=== PATIENT | male | born 1970 | race Caucasian/White ===

== ENCOUNTER → 2021-01-30 13:56 | Outpatient (BNVA) | payer MEDICAID, SELFPAY | PROVIDERS: Family Provider Nurse Practitioner; PCP Nurse Practitioner; Visit Provider Nurse Practitioner Family | DX: J06.9 Acute upper respiratory infection, unspecified (principal); Z20.822 Contact with and (suspected) exposure to COVID-19 | CPT/HCPCS: 87426 ==

== ENCOUNTER 2021-02-13 04:36 | Emergency (ER) | payer MEDICAID, SELFPAY ==
[2021-02-13 04:37] VITALS: BP 145/84; PULSE 98; RESP 20; TEMP 36.8; O2SAT 100; BMI 31.1
--- NOTE | 2021-02-13 04:37 | ECG_ITS ---
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
--- NOTE | 2021-02-13 04:37 | XRR_ITS ---
PROCEDURE INFORMATION: Exam: XR Chest Exam date and time: 02/13/2021 4:37 AM Age: 50 years old Clinical indication: Chest pressure; Patient HX: Chest pain with radiation into back. Dyspnea. History of mi TECHNIQUE: Imaging protocol: XR of the chest. Views: 1 view. COMPARISON: CR Chest 1 [place] [id number] 06/22/2018 2:44 PM FINDINGS: Lungs: Mild airspace consolidation in the right infrahilar region, consistent with pneumonia, new. Follow-up imaging until clear is suggested. The left lung is clear. Pulmonary vasculature within normal limits. Pleural spaces: No visible pneumothorax or pleural effusion. Heart/Mediastinum: Heart size within normal limits. Bones/joints: No emergent findings identified. XR/XR chest 1V portable [id number] IMPRESSION: 1. Mild airspace consolidation in the right infrahilar region, consistent with pneumonia, new. Follow-up imaging until clear is suggested.
--- NOTE | 2021-02-13 04:38 | ED_ITS ---
Documented by User: Vanessa Sanchez MD 02/14/21 08:16 HPI - General Adult General: Chief complaint: ER Hold Stated complaint: CHEST PAIN Time Seen by Provider: 02/13/21 04:37 History of Present Illness: HPI narrative: CC: Chest Pain HPI: This is a [50] yo patient hx of HTN, CAD w/ prior MN, recent covid x 3 weeks ago presenting to the ED w/ acute onset intermittent sharp and pressure- like chest pain radiatnig to between the scapula back pain x 2 hours while sleeping. Patient started suddenly and is worse with inspiration. Denies nausa. No associated with vomiting or decreased PO intake. Denies any recent sympathomimetic drug use. Patient denies any cough. Denies palpitations, syncope symptoms. Pain not positional. No recent immobility, surgery, unilateral leg swelling, or prior PE. Patient denies any orthopnea, paroxysmal nocturnal dyspnea, weight gain, or increased leg swellings. Patient took 1 tab of SL nitro with improvement of pain. He was given 3 SL nitro by rescue with complete resolution of chest pain. ASA given en route. Onset: 2 hrs ago Duration: ongoing for the last 2 hrs Location: home Severity: moderate Review of Systems Narrative: Constitutional: No fever, no chills. HEENT: No vision changes, no sore throat. CV: +chest pain, no palpitations. PULM: No cough, +dyspnea. GI: No abdominal pain, no N/V/D. : No dysuria, no frequency, no hematuria. MSKEL: No arthralgias, no edema. SKIN: No new rashes, no lesions. NEURO: No headache, no focal weakness. HEME: No easy bleeding or bruising. PSYCH: No change in mood or affect. PFS ED PFSH: Medical History (Updated 02/13/21 @ 10:20 by Mau Jay MD) Cardiomyopathy Nonischemic with last EF around 40% Hypertensive left ventricular hypertrophy with heart failure Family History (Updated 02/13/21 @ 10:20 by Mau Jay MD) Other CAD (coronary artery disease) Social History (Updated 02/13/21 @ 10:21 by Mau Jay MD) Smoking and tobacco status: current every day smoker Alcohol intake: never Physical Exam Narrative: EXAM NARRATIVE: Head: Atraumatic, normocephalic Eyes: PERRL, EOMI, conjunctiva without injection ENT: Throat without erythema, lesions or exudate, MMM NECK: Supple, trachea midline, no JVD LUNGS: LCTA CV: RRR, S1,S2, no murmurs, rubs, gallops. 2+ peripheral pulses in UEs ABDOMEN: Soft, nontender, nondistended, BS x4, no rigidity, no guarding, no rebound EXTREMITY: Normal ROM, no pitting edema, no calf tenderness to palpation SKIN: No rash or erythema NEURO: Awake and alert. No focal motor deficits. PSYCH: Normal mood and affect. Course Vital Signs: Vital signs: Vital Signs Temperature 98.1 F 02/13/21 10:44 Pulse Rate 80 02/13/21 10:44 Respiratory Rate 18 02/13/21 10:44 Blood Pressure 138/78 02/13/21 10:44 Pulse Oximetry 98 02/13/21 10:44 MDM - General Adult MDM Narrative: Medical decision making narrative: [50]yo patient w/ CAD w/ prior MN, HTN resenting to the ED With acute substernal chest pain sometimes sharp pressure-like X 2 hrs. Currently chest pain free after 4 dose of SL nitro/ Given History And Exam today I have moderate to high suspicion for ACS/UA/NSTEMI. Given suddden onset of pleuritic and back-radiating pain, will evaluate for PE and dissection. Today, I have no suspicion for pneumothorax, pneumonia or other emergent problem as a cause for this presentation. ECG did not show any signs of acute STEMI. Workup: ECG, CXR, CBC, BMP, Troponin, CTA chest Findings: ECG: No overt evidence of STEMI, appropriate reciprocal ST depression from tall T waves, LVH criteira. No evidence of Brugada?s sign, delta wave, epsilon wave, significantly prolonged QTc, or malignant arrhythmia. No Q waves. [6:00am] On reassessment, the patient is currently chest pain free. S/p aspirin 325mg by rescue. Will defer antiplatelet and anticoagulation to the inpatient team. Pending repeat troponin. HDS, AAOx3, no signs of respiratory distress, without refractory chest pain, no signs of malignant dysrhythmia on neon sign servicer (VT/VF). CTA negative for dissection and PE. There apperas to consolidation noted on the CT study. Patient is currently febrile, no signs of leukocytosis, no complaints of respiratory symptoms --double PNA, but will defer treatment to the inpatient team. Disposition: Inpatient admission. Lab Data: Labs: Lab Results 02/13/21 02/13/21 02/13/21 Range/Units 04:50 04:50 04:50 WBC 7.8 (4.0-10.0) 10^3/ uL RBC 4.55 (4.1-5.3) 10^6/u L Hgb 13.5 (11.7-16.6) g/dL Hct 41.5 L (42.0-52.0) % MCV 91.2 (80-94) fL MCH 29.7 (28.0-34.0) pg MCHC 32.5 (30.0-36.0) g/dL RDW 11.8 L (12.1-15.1) % Plt Count 339 (130-400) 10^3/c mm MPV 10.6 H (7.4-10.4) fL Neut % (Auto) 62.6 % Lymph % (Auto) 24.5 % Lawrence % (Auto) 10.8 % Eos % (Auto) 1.5 % Baso % (Auto) 0.5 % Neut # (Auto) 4.89 (1.8-7.7) 10^3/u L Lymph # (Auto) 1.9 (0.8-4.8) 10^3/u L Lawrence # (Auto) 0.8 (0.2-0.9) 10^3/u L Eos # (Auto) 0.1 (0.0-0.8) 10^3/u L Baso # (Auto) 0.0 (0.0-0.1) 10^3/u L Nucleated RBC % (a uto) 0 % Nucleated RBCs # 0.0 /100WBC Sodium 141 (136-145) mmol/L Potassium 4.3 (3.5-5.1) mmol/L Chloride 105 (98-107) mmol/L Carbon Dioxide 27 (22-29) mmol/L Anion Gap 13.3 (5-19) BUN 14 (6-20) mg/dL Creatinine 0.8 (0.7-1.2) mg/dL GFR Calculation 101.9 (90-130) mL/min Glucose 102 (65-115) mg/dL Calculated Osmolal ity 293 (285-295) mOsm/k g Calcium 9.0 (8.5-10.5) mg/dL Troponin T Baselin e 8 (0-15) ng/L Troponin T 120 Min nikolai (0-15) ng/L Delta Troponin T (0-10) ABS# TSH (0.27-4.20) uIU/ mL SARS-CoV-2 Ag (Rap id) (Negative) 02/13/21 02/13/21 02/13/21 Range/Units 04:50 04:55 07:24 WBC (4.0-10.0) 10^3/ uL RBC (4.1-5.3) 10^6/u L Hgb (11.7-16.6) g/dL Hct (42.0-52.0) % MCV (80-94) fL MCH (28.0-34.0) pg MCHC (30.0-36.0) g/dL RDW (12.1-15.1) % Plt Count (130-400) 10^3/c mm MPV (7.4-10.4) fL Neut % (Auto) % Lymph % (Auto) % Lawrence % (Auto) % Eos % (Auto) % Baso % (Auto) % Neut # (Auto) (1.8-7.7) 10^3/u L Lymph # (Auto) (0.8-4.8) 10^3/u L Lawrence # (Auto) (0.2-0.9) 10^3/u L Eos # (Auto) (0.0-0.8) 10^3/u L Baso # (Auto) (0.0-0.1) 10^3/u L Nucleated RBC % (a uto) % Nucleated RBCs # /100WBC Sodium (136-145) mmol/L Potassium (3.5-5.1) mmol/L Chloride (98-107) mmol/L Carbon Dioxide (22-29) mmol/L Anion Gap (5-19) BUN (6-20) mg/dL Creatinine (0.7-1.2) mg/dL GFR Calculation (90-130) mL/min Glucose (65-115) mg/dL Calculated Osmolal ity (285-295) mOsm/k g Calcium (8.5-10.5) mg/dL Troponin T Baselin e (0-15) ng/L Troponin T 120 Min nikolai 9.05 (0-15) ng/L Delta Troponin T 1.05 (0-10) ABS# TSH 0.83 (0.27-4.20) uIU/ mL SARS-CoV-2 Ag (Rap id) Negative (Negative) Discharge Plan Discharge Patient Disposition: Home Clinical Impression: Chest pain, COVID-19, Pneumonia Condition: Stable Prescriptions: New doxycycline hyclate 100 mg capsule 100 mg PO BID 10 Days Qty: 20 RF: 0 aspirin 81 mg tablet,delayed release (DR/EC) 81 mg PO DAILY Qty: 30 RF: 0 Continued nitroglycerin [Nitrostat] 0.4 mg tablet, sublingual 0.4 mg sublingual Q5M PRN (Reason: Chest Pain) RF: 0 Discharge Orders: Discharge ED (Routine); Ordered 02/13/21 Ordered By: Renan Jones Referrals: Mely Dawson FNP-C [Primary Care Provider] - Patient Instructions: Opioid Safety Coding Level of Care Code ED Political Advisor for Chg Fwd Documented by User: Renan Jones DO 02/13/21 09:11 HPI - General Adult General: Chief complaint: ER Hold Stated complaint: CHEST PAIN Time Seen by Provider: 02/13/21 04:37 PFS ED PFSH: Medical History (Updated 02/13/21 @ 10:20 by Mau Jay MD) Cardiomyopathy Nonischemic with last EF around 40% Hypertensive left ventricular hypertrophy with heart failure Family History (Updated 02/13/21 @ 10:20 by Mau Jay MD) Other CAD (coronary artery disease) Social History (Updated 02/13/21 @ 10:21 by Mau Jay MD) Smoking and tobacco status: current every day smoker Alcohol intake: never Course Vital Signs: Vital signs: Vital Signs Temperature 98.1 F 02/13/21 10:44 Pulse Rate 80 02/13/21 10:44 Respiratory Rate 18 02/13/21 10:44 Blood Pressure 138/78 02/13/21 10:44 Pulse Oximetry 98 02/13/21 10:44 MDM - General Adult MDM Narrative: Medical decision making narrative: Discussed patient with Dr. Sanchez at change of shift. Also discussed Dr. Rocha. Dr. Rocha is currently seeing the patient anticipating adjustment of medications and discharge directly from the ER. See his consultation notes. Lab Data: Labs: Lab Results 02/13/21 02/13/21 02/13/21 Range/Units 04:50 04:50 04:50 WBC 7.8 (4.0-10.0) 10^3/ uL RBC 4.55 (4.1-5.3) 10^6/u L Hgb 13.5 (11.7-16.6) g/dL Hct 41.5 L (42.0-52.0) % MCV 91.2 (80-94) fL MCH 29.7 (28.0-34.0) pg MCHC 32.5 (30.0-36.0) g/dL RDW 11.8 L (12.1-15.1) % Plt Count 339 (130-400) 10^3/c mm MPV 10.6 H (7.4-10.4) fL Neut % (Auto) 62.6 % Lymph % (Auto) 24.5 % Lawrence % (Auto) 10.8 % Eos % (Auto) 1.5 % Baso % (Auto) 0.5 % Neut # (Auto) 4.89 (1.8-7.7) 10^3/u L Lymph # (Auto) 1.9 (0.8-4.8) 10^3/u L Lawrence # (Auto) 0.8 (0.2-0.9) 10^3/u L Eos # (Auto) 0.1 (0.0-0.8) 10^3/u L Baso # (Auto) 0.0 (0.0-0.1) 10^3/u L Nucleated RBC % (a uto) 0 % Nucleated RBCs # 0.0 /100WBC Sodium 141 (136-145) mmol/L Potassium 4.3 (3.5-5.1) mmol/L Chloride 105 (98-107) mmol/L Carbon Dioxide 27 (22-29) mmol/L Anion Gap 13.3 (5-19) BUN 14 (6-20) mg/dL Creatinine 0.8 (0.7-1.2) mg/dL GFR Calculation 101.9 (90-130) mL/min Glucose 102 (65-115) mg/dL Calculated Osmolal ity 293 (285-295) mOsm/k g Calcium 9.0 (8.5-10.5) mg/dL Troponin T Baselin e 8 (0-15) ng/L Troponin T 120 Min nikolai (0-15) ng/L Delta Troponin T (0-10) ABS# TSH (0.27-4.20) uIU/ mL SARS-CoV-2 Ag (Rap id) (Negative) 02/13/21 02/13/21 02/13/21 Range/Units 04:50 04:55 07:24 WBC (4.0-10.0) 10^3/ uL RBC (4.1-5.3) 10^6/u L Hgb (11.7-16.6) g/dL Hct (42.0-52.0) % MCV (80-94) fL MCH (28.0-34.0) pg MCHC (30.0-36.0) g/dL RDW (12.1-15.1) % Plt Count (130-400) 10^3/c mm MPV (7.4-10.4) fL Neut % (Auto) % Lymph % (Auto) % Lawrence % (Auto) % Eos % (Auto) % Baso % (Auto) % Neut # (Auto) (1.8-7.7) 10^3/u L Lymph # (Auto) (0.8-4.8) 10^3/u L Lawrence # (Auto) (0.2-0.9) 10^3/u L Eos # (Auto) (0.0-0.8) 10^3/u L Baso # (Auto) (0.0-0.1) 10^3/u L Nucleated RBC % (a uto) % Nucleated RBCs # /100WBC Sodium (136-145) mmol/L Potassium (3.5-5.1) mmol/L Chloride (98-107) mmol/L Carbon Dioxide (22-29) mmol/L Anion Gap (5-19) BUN (6-20) mg/dL Creatinine (0.7-1.2) mg/dL GFR Calculation (90-130) mL/min Glucose (65-115) mg/dL Calculated Osmolal ity (285-295) mOsm/k g Calcium (8.5-10.5) mg/dL Troponin T Baselin e (0-15) ng/L Troponin T 120 Min nikolai 9.05 (0-15) ng/L Delta Troponin T 1.05 (0-10) ABS# TSH 0.83 (0.27-4.20) uIU/ mL SARS-CoV-2 Ag (Rap id) Negative (Negative) Discharge Plan Discharge Patient Disposition: Home Clinical Impression: Chest pain, COVID-19, Pneumonia Condition: Stable Prescriptions: New doxycycline hyclate 100 mg capsule 100 mg PO BID 10 Days Qty: 20 RF: 0 aspirin 81 mg tablet,delayed release (DR/EC) 81 mg PO DAILY Qty: 30 RF: 0 Continued nitroglycerin [Nitrostat] 0.4 mg tablet, sublingual 0.4 mg sublingual Q5M PRN (Reason: Chest Pain) RF: 0 Discharge Orders: Discharge ED (Routine); Ordered 02/13/21 Ordered By: Renan Jones Referrals: Mely Dawson, SWITCHGEAR REPAIRER-C [Primary Care Provider] - Patient Instructions: Opioid Safety Coding Level of Care Code ED Political Advisor for Carlos Longo
--- NOTE | 2021-02-13 04:46 | CTR_ITS ---
PROCEDURE INFORMATION: Exam: CTA Chest With Contrast Exam date and time: 02/13/2021 4:46 AM Age: 50 years old Clinical indication: Chest pressure; Patient HX: Chest pain with radiation into back. Dyspnea. History of mi; Additional info: Rule out pe TECHNIQUE: Imaging protocol: Computed tomographic angiography of the chest with contrast. 3D rendering (Not supervised by radiologist): MIP and/or 3D reconstructed images were created by the technologist. Radiation optimization: All CT scans at this facility use at least one of these dose optimization techniques: automated exposure control; mA and/or kV adjustment per patient size (includes targeted exams where dose is matched to clinical indication); or iterative reconstruction. Contrast material: OMNI 350; Contrast volume: 77 ml; Contrast route: INTRAVENOUS (IV); COMPARISON: CTA Thoracic/Abd/Pelvis Aorta 03/24/2018 11:23 PM RADIATION DOSE METRICS: Total DLP (mGy-cm): 578.86 FINDINGS: Pulmonary arteries: No pulmonary emboli identified. Aorta: No thoracic aortic aneurysm identified. Lungs: Mild atelectasis at the periphery of both lungs. Moderate airspace consolidation in the right lower lobe superior segment, new. Appearance is consistent with pneumonia. Follow-up imaging until clear is suggested. Pleural spaces: No pneumothorax or pleural effusion. Heart: Heart size within normal limits. Lymph nodes: Enlarged right hilar lymph node measuring 1.4 cm short axis on series 2, image 214. Bones/joints: Mild degenerative changes of the thoracic spine. Soft tissues: Unremarkable. CT/CT angio chest PE protcl [id number] IMPRESSION: 1. No pulmonary emboli identified. 2. Moderate airspace consolidation in the right lower lobe superior segment, new. Appearance is consistent with pneumonia. Follow-up imaging until clear is suggested. Radiation Dose CTDIVOL = (mGy): DLP = 578.86 (mGy-cm)
[2021-02-13] MEDS: iohexol 350 mg/mL 100 mL Btl IV (05:02)
[2021-02-13 05:27] LABS: Troponin(5th) Baseline 8 ng/L (0-15)
[2021-02-13 05:28] LABS: Basophils % 0.5 %; Eosinophils # 0.1 10^3/uL (0.0-0.8); Eosinophils % 1.5 %; Hematocrit 41.5 % (42.0-52.0); Hemoglobin 13.5 g/dL (11.7-16.6); Lymphocytes # 1.9 10^3/uL (0.8-4.8); Lymphocytes % 24.5 %; Mean Corpuscular HGB Conc 32.5 g/dL (30.0-36.0); Mean Corpuscular Hemoglobin 29.7 pg (28.0-34.0); Mean Corpuscular Volume 91.2 fL (80-94); Mean Platelet Volume 10.6 fL (7.4-10.4); Monocytes # 0.8 10^3/uL (0.2-0.9); Monocytes % 10.8 %; Neutrophils # 4.89 10^3/uL (1.8-7.7); Neutrophils % 62.6 %; Nucleated Red Blood Cells % 0 %; Platelet Count 339 10^3/cmm (130-400); Red Blood Count 4.55 10^6/uL (4.1-5.3); Red Cell Distribution Width 11.8 % (12.1-15.1); White Blood Count 7.8 10^3/uL (4.0-10.0)
[2021-02-13 05:29] LABS: Anion Gap 13.3 (5-19); Blood Urea Nitrogen 14 mg/dL (6-20); Carbon Dioxide 27 mmol/L (22-29); Chloride 105 mmol/L (98-107); Creatinine Clr Calc Pharmacy 136.4209; Glomerular Filtration Rate 101.9 mL/min (90-130); Glucose 102 mg/dL (65-115); Osmolality Calculated 293 mOsm/kg (285-295); Potassium 4.3 mmol/L (3.5-5.1); Sodium 141 mmol/L (136-145)
[2021-02-13 05:56] VITALS: BP 117/71; PULSE 89; RESP 16; O2SAT 96
[2021-02-13 06:07] LABS: SARS Covid-2 Antigen Negative (Negative)
--- NOTE | 2021-02-13 06:37 | ECG_ITS ---
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
[2021-02-13 07:55] LABS: Troponin 5 2HR 9.05 ng/L (0-15); Troponin 5 2HR Delta 1.05 ABS# (0-10)
--- NOTE | 2021-02-13 08:33 | USCV_ITS ---
Orlin De Age: 50 Gender: M : 1970 Exam Date: 02/13/2021 08:49 Ordering Phys: Mau Jay MD Technologist: Delia Boyce Exam Location: [facility] Indication: CHEST PAIN BP: 118 / 76 HR: 75 Rhythm: Sinus Technical Quality: Adequate MEASUREMENTS (Male / Female) Normal Values 2D ECHO LV Diastolic Diameter PLAX 5.7 cm 4.2 - 5.9 / 3.9 - 5.3 cm LV Systolic Diameter PLAX 4.8 cm IVS Diastolic Thickness 1.4 cm 0.6 - 1.0 / 0.6 - 0.9 cm IVS Systolic Thickness 1.4 cm LVPW Diastolic Thickness 1.4 cm 0.6 - 1.0 / 0.6 - 0.9 cm LVPW Systolic Thickness 1.8 cm RV Chamber Size 2.3 cm LVOT Diameter 2.3 cm LV Ejection Fraction 2D Teich 34.2 % LV Ejection Fraction MOD 2C 36.0 % LV Ejection Fraction 2C AL 37.2 % LA Diameter 3.5 cm LA Width 3.1 cm LA Height 4.2 cm RA Width 3.6 cm RA Height 3.7 cm Aorta at Sinotubular Diameter 2.8 cm M-MODE Aortic Annulus Diameter 3.2 cm LA Ao Ratio MM 1.2 MV E Point Septal Separation 1.3 cm DOPPLER AV Peak Velocity 115.0 cm/s LVOT Peak Velocity 82.0 cm/s AV Area Cont Eq vti 2.8 cm squared AV Area Cont Eq pk 3.1 cm squared MV Area PHT 5.0 cm squared Mitral E to A Ratio 0.7 MV E' Velocity 32.5 cm/s Mitral E to MV E' Ratio 8.0 Mitral E to LV E' Lateral Ratio 6.4 Mitral E to LV E' Septal Ratio 10.5 TR Peak Velocity 194.7 cm/s TR Peak Gradient 15.2 mmHg TV Peak E Velocity 61.0 cm/s Right Atrial Pressure 3.0 mmHg Pulmonary Artery Systolic Pressu 18.2 mmHg PV Peak Velocity 83.0 cm/s RV Acceleration Time 0.1 s RV Ejection Time 0.3 s RV AcT/ET 0.4 FINDINGS Left Ventricle Moderately increased left ventricular cavity size. Moderately decreased left ventricular systolic function. Left ventricular ejection fraction is estimated at 40 %. Global left ventricular hypokinesis.Grade I/IV diastolic dysfunction (abnormal relaxation filling pattern), normal to mildly elevated filling pressures. Right Ventricle The right ventricle is normal in size and function. Right Atrium The right atrium is normal in size. Left Atrium The left atrium is normal in size. Mitral Valve Moderately thickened mitral valve. No mitral valve stenosis. Trace mitral valve regurgitation. Aortic Valve Mild aortic valve calcification. No aortic valve stenosis. Trace aortic valve regurgitation. Tricuspid Valve Structurally normal tricuspid valve without significant stenosis or regurgitation. Pulmonary artery systolic pressure is normal. Pulmonic Valve Structurally normal pulmonic valve without significant stenosis. There is no pulmonic regurgitation. Pericardium Normal pericardium without effusion. Aorta Normal ascending aorta dimension. CONCLUSIONS 1-Moderately increased left ventricular cavity size. Moderately decreased left ventricular systolic function. Left ventricular ejection fraction is estimated at 40 %. Global left ventricular hypokinesis.Grade I/IV diastolic dysfunction (abnormal relaxation filling pattern), normal to mildly elevated filling pressures. 2-Moderately thickened mitral valve. No mitral valve stenosis. Trace mitral valve regurgitation. 3-Mild aortic valve calcification. No aortic valve stenosis. Trace aortic valve regurgitation. 4-There is no pericardial effusion. 5-Pulmonary artery systolic pressure is within normal limits. 6-Right atrial pressure is around 5 mm of mercury. 7-No significant change since the prior echocardiogram study of 03/26/2018. Brianne Arias MD (Electronically Signed) Final Date: 13 February 2021 10:04 S
[2021-02-13 09:21] LABS: Thyroid Stimulating Hormone 0.83 uIU/mL (0.27-4.20)
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
[2021-02-13 10:44] VITALS: BP 138/78; PULSE 80; RESP 18; TEMP 36.7; O2SAT 98
--- NOTE | 2021-02-17 13:58 | DCPLANNER ---
Addendum entered by Concetta Larsen 02/18/21 09:49: manager research and development spoke with patients daughter, and gave her the appointment information for patient. She stated that she would give the information to patient. Original Note: manager research and development had message to schedule a follow up appointment for patient with heart care and an outpatient stress test. manager research and development called [facility], spoke with Pily, a follow up appointment is scheduled for Wednesday, March 03, 2021 at 10:30 with . manager research and development faxed signed order to centralized scheduling, who will call patient with appointment information. manager research and development called phone number [phone] - unable to speak with patient and unable to leave a voicemail due to no voicemail set up at this time. manager research and development called phone number [phone], patients daughter, left a voicemail to have patient return nurse case manager phone call.
--- NOTE | 2021-03-04 07:34 | DCPLANNER ---
Patient has a stress test scheduled for Wednesday, March 19, 2021 at 9:15. Patient had a follow up appointment scheduled for 03.03.21 with heart care - patient did not attend appointment.
--- NOTE | 2021-03-28 11:20 | DCPLANNER ---
Patient had an outpatient stress test scheduled for 03.19.21 - patient did not attend appointment.
== END 2021-02-13 10:45 | disposition home or self-care (01) ==
LOC: ER 04:40 → ER IP 10:18
PROVIDERS: Emergency Medicine; Internal Medicine; Emergency Provider Family Medicine; PCP Nurse Practitioner
DX: R07.9 Chest pain, unspecified (principal); U07.1 COVID-19; J12.82 Pneumonia due to coronavirus disease 2019; I25.10 Atherosclerotic heart disease of native coronary artery without angina pectoris; I25.2 Old myocardial infarction; I11.0 Hypertensive heart disease with heart failure; I43 Cardiomyopathy in diseases classified elsewhere; Z82.49 Family history of ischemic heart disease and other diseases of the circulatory system
CPT/HCPCS: 36415; 71045; 71275; 80048; 84443; 84484; 85025; 87426; 93005; 93306; 99283; Q9967

== ENCOUNTER → 2021-08-13 12:05 | Outpatient (BNVA) | payer MEDICAID, SELFPAY | PROVIDERS: PCP Nurse Practitioner; Visit Provider Nurse Practitioner | DX: I42.9 Cardiomyopathy, unspecified (principal); E74.39 Other disorders of intestinal carbohydrate absorption | CPT/HCPCS: 80053; 80061; 81000; 83036; 85025 ==

== ENCOUNTER 2022-03-04 12:45 | Emergency (ER) | payer MEDICAID, SELFPAY ==
[2022-03-04 12:48] VITALS: BP 140/87; PULSE 90; RESP 17; TEMP 36.7; O2SAT 98; BMI 28.5
[2022-03-04 12:56] VITALS: BP 140/87; PULSE 90; RESP 16; TEMP 36.7; O2SAT 98; BMI 28.5
[2022-03-04 13:08] LABS: Glucose Point of Care 105 mg/dL (70-110)
--- NOTE | 2022-03-04 13:18 | XR_ITS ---
WS: [id number] Exam: XR ankle RT min 3V* [id number] Date/Time of Exam: 03/04/2022 1:23 PM Reason For Exam: pain Findings: Multiple views of the ankle reveal no fracture or displacements of bone. No soft tissue swelling is present. There are no periosteal reactions noted. The talus and calcaneus are in adequate position. The joint space is smooth and equidistant. XR/XR ankle RT min 3V* [id number] IMPRESSION: Negative right ankle.
--- NOTE | 2022-03-04 13:18 | XR_ITS ---
WS: [id number] Exam: XR foot RT min 3V* [id number] Date/Time of Exam: 03/04/2022 1:23 PM Reason For Exam: pain No fracture or dislocation. No soft tissue foreign bodies are seen. Tiny heel spur. XR/XR foot RT min 3V* [id number] IMPRESSION: 1. No fracture or other significant finding.
--- NOTE | 2022-03-04 13:20 | ED_ITS ---
HPI - Extremity Problem General: Chief complaint: Extremity Problem,Nontraumatic Stated complaint: Pain all over Time Seen by Provider: 03/04/22 13:02 History of Present Illness: 51-year-old male presents emergency room with complaint of right ankle and foot pain. On arrival here is difficult to understand difficult to arouse at times even desaturated. He required supplemental oxygen for a time. His gave most of his history. When I asked her to allow him to answer he was unable to answer really any questions. She states he jumped off of a low-level roof and hurt his right foot yesterday she did not he did not strike his head or lose consciousness. He was at work. Today and said that his foot began to hurt and he laughed they eventually called the ambulance and he was brought in by family. He is complaining of pain generally all over but mostly focused on his foot. Patient level of consciousness progressively worsened and we gave him Narcan after which she was much more awake and alert and able to answer questions appropriately. He denies any narcotics use. MD Complaint: extremity pain Onset (ago): minute(s) Pain Consistency: constant Location: right (Foot) Quality: sharp Radiation: none Relieving factors: nothing Exacerbating factors: nothing Associated symptoms: Deny arthralgias, chest pain, fever(s), myalgias, rash or short of breath Review of Systems General: Reports: Other (Review of systems after Narcan given) Const: Denies: fever(s) ENMT: Denies: throat pain, ear or mastoid pain, nasal discharge or nasal congestion Card: Denies: chest pain Resp: Denies: dyspnea, productive cough or non-productive cough GI: Denies: abdominal pain, nausea, vomiting, hematemesis, coffee ground emesis, diarrhea, constipation, bloating, hematochezia or melena : Denies: flank pain, dysuria, urinary frequency or urinary urgency Musc: Reports: joint pain Skin/Breast: Denies: rash PFSH ED PFSH: Medical History Cardiomyopathy Nonischemic with last EF around 40% COVID-19 History of PR (myocardial infarction) Hyperlipidemia Hypertensive left ventricular hypertrophy with heart failure Migraines Osteoarthritis Pneumonia Tobacco use Surgical History No history of previous surgery Family History Mother CAD (coronary artery disease) Myocardial infarction Social History Smoking and tobacco status: current every day smoker Alcohol intake: never Caregiver/support person: Yes Lives independently: Yes Household members: significant other Current gender identity: Male Physical Exam Const: GENERAL APPEARANCE: disheveled and lethargic ORIENTATION/CONSCIOUSN ESS: Yes awake, Yes oriented to person, Yes oriented to place, Yes oriented to time and Yes lethargic HENMT: COMMON NORMALS: normocephalic, atraumatic and hearing grossly normal bilaterally HEAD & SCALP: normocephalic and atraumatic Eye: COMMON NORMALS: Equal, round and reactive pupils present, EOMs intact bilaterally, conjunctivae normal and no scleral icterus CONJUNCTIVA: Yes conjunctivae normal PUPIL: Yes Equal, round and reactive pupils present Neck/C-Spine: COMMON NORMALS: full ROM, no lymphadenopathy, supple and no JVD Lymph: LYMPHATIC: no lymphadenopathy noted and no lymphedema noted Resp: COMMON NORMALS: normal respiratory effort, No retractions, No use of accessory muscles and clear to auscultation bilaterally AUSCULTATION: clear to auscultation bilaterally Cardio: COMMON NORMALS: no JVD, regular rate, regular rhythm and No murmurs present (Cardio) RATE: regular rate RHYTHM: regular rhythm GI: COMMON NORMALS: Soft to palpation and No hepatosplenomegaly present AUSCULTATION: Yes normoactive bowel sounds PALPATION: Yes Soft to palpation, No Tenderness to palpation present (GI), No Guarding due to palpation present (GI) and Yes No hepatosplenomegaly present Extremity: COMMON NORMALS: normal to inspection, capillary refill normal, no clubbing, cyanosis or edema, no calf tenderness and no pedal edema OTHER: No deformity the right foot or ankle pulses palpable at dorsalis pedis posterior tibialis neurovascularly intact. Neuro: SENSORIUM/ORIENTATION: Yes oriented to person, Yes oriented to place, Yes oriented to time and Yes lethargic Skin: COMMON NORMALS: no rashes or lesions noted GENERAL SKIN EXAM: no rashes or lesions noted Course Vital Signs: Vital signs: Vital Signs Temperature 98.0 F 03/04/22 12:56 Pulse Rate 76 03/04/22 13:39 Respiratory Rate 31 H 03/04/22 13:39 Blood Pressure 129/63 03/04/22 13:39 Pulse Oximetry 98 03/04/22 13:39 Oxygen Delivery Me thod 03/04/22 13:39 MDM - Extremity (Nontraumatic) Medical Decision Making Patient responded to Narcan completely awake and did not have any recurrence of his symptoms. X-rays unremarkable CT negative. He is remained awake and alert. He probably did sprain his ankle for which we gave him diclofenac. Discussed with him that we gave him medication is very specific with reversal of opiates he maintains he does not take any opiates he states he has no idea how that might of gotten into his system. We will go at discharge him home use diclofenac. Follow-up with his primary care doctor if he does not improve. Medical Records I reviewed the patient's medical records. Lab Data I reviewed the patient's lab results. : 03/04/22 13:52 03/04/22 13:52 Radiology Impressions Ankle X-Ray 03/04/22 13:18 IMPRESSION: Negative right ankle. Foot X-Ray 03/04/22 13:18 IMPRESSION: 1. No fracture or other significant finding. Chest X-Ray 03/04/22 13:32 IMPRESSION: Unremarkable chest radiograph. Head CT 03/04/22 13:35 IMPRESSION: 1. No acute intracranial hemorrhage or edema. 2. Bilateral basal ganglia calcification and stable LEFT cerebellar calcification. Laboratory Results WBC 10.7 10^3/uL (4.0-10.0) H 03/04/22 13:52 RBC 4.00 10^6/uL (4.1-5.3) L 03/04/22 13:52 Hgb 12.0 g/dL (11.7-16.6) 03/04/22 13:52 Hct 36.8 % (42.0-52.0) L 03/04/22 13:52 MCV 92.0 fl (80-94) 03/04/22 13:52 MCH 30.0 pg (28.0-34.0) 03/04/22 13:52 MCHC 32.6 g/dL (30.0-36.0) 03/04/22 13:52 RDW 11.7 % (12.1-15.1) L 03/04/22 13:52 Plt Count 232 10^3/cmm (130-400) 03/04/22 13:52 MPV 10.5 fL (7.4-10.4) H 03/04/22 13:52 Neut % (Auto) 73.7 % 03/04/22 13:52 Lymph % (Auto) 15.7 % 03/04/22 13:52 [place] % (Auto) 6.8 % 03/04/22 13:52 Eos % (Auto) 2.6 % 03/04/22 13:52 Baso % (Auto) 0.6 % 03/04/22 13:52 Neut # (Auto) 7.87 10^3/uL (1.8-7.7) H 03/04/22 13:52 Lymph # (Auto) 1.7 10^3/uL (0.8-4.8) 03/04/22 13:52 [place] # (Auto) 0.7 10^3/uL (0.2-0.9) 03/04/22 13:52 Eos # (Auto) 0.3 10^3/uL (0.0-0.8) 03/04/22 13:52 Baso # (Auto) 0.1 10^3/uL (0.0-0.1) 03/04/22 13:52 Nucleated RBC % (auto) 0 % 03/04/22 13:52 Nucleated RBCs # 0.0 /100WBC 03/04/22 13:52 Sodium 140 mmol/L (136-145) 03/04/22 13:52 Potassium 3.5 mmol/L (3.5-5.1) 03/04/22 13:52 Chloride 107 mmol/L (98-107) 03/04/22 13:52 Carbon Dioxide 22 mmol/L (22-29) 03/04/22 13:52 Anion Gap 14.5 (5-19) 03/04/22 13:52 BUN 23 mg/dL (6-20) H 03/04/22 13:52 Creatinine 0.7 mg/dL (0.7-1.2) 03/04/22 13:52 GFR Calculation 118.4 mL/min (90-130) 03/04/22 13:52 Glucose 109 mg/dL (65-115) 03/04/22 13:52 POC Glucose 105 mg/dL (70-110) 03/04/22 13:01 Calculated Osmolality 294 mOsm/kg (285-295) 03/04/22 13:52 Calcium 8.9 mg/dL (8.5-10.5) 03/04/22 13:52 Total Bilirubin 0.4 mg/dL (0.15-1.2) 03/04/22 13:52 AST 18 U/L (0-40) 03/04/22 13:52 ALT 15 U/L (0-41) 03/04/22 13:52 Alkaline Phosphatase 66 U/L (40-130) 03/04/22 13:52 Total Protein 6.8 g/dL (6.6-8.7) 03/04/22 13:52 Albumin 4.4 g/dL (3.5-5.2) 03/04/22 13:52 Globulin 2.4 g/dL (1.3-4.6) 03/04/22 13:52 Salicylates 0.9 mg/dL (3-10) L 03/04/22 13:52 Acetaminophen < 5.0 ug/mL (10-30) L 03/04/22 13:52 Discharge Plan Discharge Patient Disposition: Home Clinical Impression: Opiate or related narcotic overdose, Ankle sprain Condition: Stable Prescriptions: New diclofenac sodium 75 mg tablet,delayed release (DR/EC) 75 mg PO Q12H PRN (Reason: pain) Qty: 20 0RF Held aspirin 325 mg Tablet 325 mg PO DAILY Hold Instructions: Resume on 03/13/22. No Action nitroglycerin [Nitrostat] 0.4 mg tablet, sublingual 0.4 mg sublingual Q5M PRN (Reason: Chest Pain) Rx Instructions: do not exceed 3 doses per episode glucose 4 gram Tablet,Chewable 4 g PO Q15M PRN (Reason: Hypocalcemia) Rx Instructions: until symptoms of low blood sugar are controlled Discharge Orders: Discharge ED (Routine); Ordered 03/04/22 Ordered By: Renan Jones Referrals: Mely Dawson, [facility]ER-C [Primary Care Provider] - Discharge Diet: Usual diet Discharge Activity: Resume usual activity Patient Instructions: Opioid Safety Activity Restrictions/Additional Instructions: If ankle pain persist follow-up with your primary care doctor. Coding Level of Care Code ED Correctional Officer Captain for Chg Fwd Exam Comprehensive
--- NOTE | 2022-03-04 13:32 | ECG_ITS ---
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 Measurements Intervals [place] Rate: 93 P: 70 GA: 136 QRS: 67 QRSD: 96 T: -48 QT: 363 QTc: 454 Interpretive Statements SINUS RHYTHM ST DEVIATION AND MODERATE T-WAVE ABNORMALITY, CONSIDER INFERIOR ISCHEMIA [-0.1+ mV T-WAVE IN II/aVF] Compared to ECG 02/13/2021 06:30:26 T-wave abnormality now present Possible ischemia now present Left ventricular hypertrophy no longer present ST (T wave) deviation no longer present Electronically Signed On 03-04-2022 16:19:43 CDT by Belén Altamirano M.D. [id number]
--- NOTE | 2022-03-04 13:32 | XR_ITS ---
WS: [id number] Exam: XR chest 1V portable [id number] Date/Time of Exam: 03/04/2022 1:41 PM Reason For Exam: dyspnea/cough Comparison 02/13/2021. Findings: The lungs are clear and fully expanded. Costophrenic angles are sharp. No infiltrates. Bronchovascula r relief appears normal. Cardiac silhouette is unremarkable. Bony elements are intact. XR/XR chest 1V portable [id number] IMPRESSION: Unremarkable chest radiograph.
[2022-03-04] MEDS: ketorolac 60 mg/2 mL INJ IM (13:33)
--- NOTE | 2022-03-04 13:35 | CT_ITS ---
WS: [id number] CT HEAD NONCONTRAST HISTORY: AMS TECHNIQUE: Contiguous axial imaging performed through the brain in 2.5 mm imaging. Bone and soft tiss ue windows. Sagittal and coronal reformats reviewed. All CT scans at [facility] use at least one of these dose optimization techniques: automated exposure control; mA and/or kV adjustment per pa tient size (includes targeted exams where dose is matched to clinical indication); or iterative recon struction. DLP: 1048.58 mGy.cm COMPARISON: 02/20/2010 No acute intracranial hemorrhage, midline shift or mass effect. Mild atrophy and mild small vessel ischemic disease. Bilateral basal ganglia calcifications. There is also a calcification in the LEFT cerebellum which is present on the prior study. Ventricles: Normal size with no hydrocephalus. No inferior displacement of the cerebellar tonsils. Paranasal sinuses: Mucoperiosteal thickening in the ethmoid air cells. Disease in the anterior and po sterior ethmoid air cells. No air-fluid levels. Mastoid air cells: Well pneumatized. Calvarium and scalp: Skull is intact with no soft tissue edema or swelling. CT/CT head wo con* [id number] IMPRESSION: 1. No acute intracranial hemorrhage or edema. 2. Bilateral basal ganglia calcification and stable LEFT cerebellar calcificat ion.
[2022-03-04 13:39] VITALS: BP 129/63; PULSE 76; RESP 31; O2SAT 98
[2022-03-04] MEDS: naloxone 0.4 mg/ml SDV IVP (14:03)
--- NOTE | 2022-03-04 14:10 | PC.PHAR ---
pts verified pts medications-states the pt was released from [facility] on 02/02/22 states the pt was on 13-14 medications but states he wasnt sent home with any and is unsure of the names of the medications he was taking while in there-states the pt has an appt with di anthony on 03/30/22-states she has only been giving the pt the medications that are entered
[2022-03-04 14:11] LABS: Basophils # 0.1 10^3/uL (0.0-0.1); Basophils % 0.6 %; Eosinophils # 0.3 10^3/uL (0.0-0.8); Eosinophils % 2.6 %; Hematocrit 36.8 % (42.0-52.0); Lymphocytes # 1.7 10^3/uL (0.8-4.8); Lymphocytes % 15.7 %; Mean Corpuscular HGB Conc 32.6 g/dL (30.0-36.0); Mean Platelet Volume 10.5 fL (7.4-10.4); Monocytes # 0.7 10^3/uL (0.2-0.9); Monocytes % 6.8 %; Neutrophils # 7.87 10^3/uL (1.8-7.7); Neutrophils % 73.7 %; Nucleated Red Blood Cells % 0 %; Platelet Count 232 10^3/cmm (130-400); Red Cell Distribution Width 11.7 % (12.1-15.1); White Blood Count 10.7 10^3/uL (4.0-10.0)
[2022-03-04 14:35] LABS: Alanine Aminotransferase 15 U/L (0-41); Albumin Level 4.4 g/dL (3.5-5.2); Alkaline Phosphatase 66 U/L (40-130); Anion Gap 14.5 (5-19); Aspartate Amino Transferase 18 U/L (0-40); Blood Urea Nitrogen 23 mg/dL (6-20); Calcium 8.9 mg/dL (8.5-10.5); Carbon Dioxide 22 mmol/L (22-29); Chloride 107 mmol/L (98-107); Globulin 2.4 g/dL (1.3-4.6); Glomerular Filtration Rate 118.4 mL/min (90-130); Glucose 109 mg/dL (65-115); Osmolality Calculated 294 mOsm/kg (285-295); Potassium 3.5 mmol/L (3.5-5.1); Salicylate 0.9 mg/dL (3-10); Sodium 140 mmol/L (136-145); Total Bilirubin 0.4 mg/dL (0.15-1.2); Total Protein 6.8 g/dL (6.6-8.7)
[2022-03-04 14:36] LABS: Acetaminophen < 5.0 ug/mL (10-30)
--- NOTE | 2022-03-04 14:52 | PC.NURSE ---
DR. LAYNE GAVE VERBAL ORDER TO STRAIT CATH PT. PT REFUSED
[2022-03-04 15:01] VITALS: BP 162/96; PULSE 54; RESP 14; O2SAT 98
[2022-03-04 16:28] VITALS: BP 144/90; PULSE 80; RESP 20; O2SAT 100
[2022-03-04 16:30] VITALS: BP 155/93; PULSE 56; O2SAT 100
== END 2022-03-04 16:31 | disposition home or self-care (01) ==
PROVIDERS: Emergency Provider Family Medicine; PCP Nurse Practitioner
DX: T40.601A Poisoning by unspecified narcotics, accidental (unintentional), initial encounter (principal); S93.401A Sprain of unspecified ligament of right ankle, initial encounter; W13.2XXA Fall from, out of or through roof, initial encounter; I25.2 Old myocardial infarction; E78.5 Hyperlipidemia, unspecified; I10 Essential (primary) hypertension; F17.210 Nicotine dependence, cigarettes, uncomplicated
CPT/HCPCS: 36416; 70450; 71045; 73610; 73630; 80053; 80307; 82962; 85025; 93005; 96372; 96374; 99285; J1885; J2310

== ENCOUNTER → 2022-04-21 14:15 | Outpatient (BNVA) | payer MEDICAID, SELFPAY | PROVIDERS: PCP Nurse Practitioner; Visit Provider Nurse Practitioner | DX: I10 Essential (primary) hypertension (principal); F15.20 Other stimulant dependence, uncomplicated; R20.0 Anesthesia of skin; R20.2 Paresthesia of skin; L30.9 Dermatitis, unspecified | CPT/HCPCS: 80307 ==

== ENCOUNTER 2024-11-06 12:49 | Inpatient (IN) | payer MEDICAID, SELFPAY ==
[2024-11-06] VITALS (8 sets, daily range): BP systolic 107–147; BP diastolic 79–97; PULSE 70–125; RESP 15–20; TEMP 36.6–36.9; O2SAT 92–98; BMI 32.5
--- NOTE | 2024-11-06 12:50 | ECG_ITS ---
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 Measurements Intervals [place] Rate: 122 P: 69 IL: 100 QRS: 71 QRSD: 88 T: 219 QT: 288 QTc: 412 Interpretive Statements SINUS TACHYCARDIA WITH SHORT [place] INTERVAL LEFT VENTRICULAR HYPERTROPHY AND ST-T CHANGE [VOLTAGE CRITERIA PLUS ST/T ABNORMALITY] Compared to ECG 03/04/2022 12:51:33 Short [place] interval now present Left ventricular hypertrophy now present ST (T wave) deviation now present Sinus rhythm no longer present T-wave abnormality no longer present Possible ischemia no longer present Electronically Signed On 11-08-2024 23:31:12 CDT by Autumn Benoit M.D. [id number]
--- NOTE | 2024-11-06 12:56 | XR_ITS ---
WS: [id number] XR chest 1V portable [id number] REASON FOR EXAM: chest pain FINDINGS: Compared to the most recent previous examination of 03/04/2022, the right hilar region appears more prominent than on the previous examination. Patient noted to have a somewhat prominent bulge of medial mediastinal margin at this level on the previous chest x-ray. CT scan on the same day as the previous chest x-ray demonstrated overlapping of the confluence of pulmonary veins and the right pulmonary artery. However, the abnormality now appears more prominent than previously. There does not appear to be significant rotation of the chest to the left. No other significant chest abnormalities are identified. XR/XR chest 1V portable [id number] IMPRESSION: Concern for the right hilar region as described above. In view of the history of chest pain and even more more significantly if the pa tient is a smoker a CT scan of the chest with contrast may be appropriate to ru le out ascending aortic abnormality or neoplastic mass would be reasonable.
--- NOTE | 2024-11-06 13:02 | ED_ITS ---
HPI - Chest Pain 2 General: Chief Complaint: Chest Pain Stated Complaint: chest pain Time Seen by Provider: 11/06/24 12:53 History of Present Illness: Orlin De 54-year-old male with a history of cardiomyopathy. Patient is complaining of chest pain he is diaphoretic and tachycardic when he arrived. He says the chest pain for the last 2 hours it woke him up from sleep he not been exerting himself. He was given Zofran 324 mg aspirin and nitro en route chest pain improved from an 8 out of 10 to a 5 of 10. Pain radiates into his back but not into his arms he is short of breath and diaphoretic. He has a known history of alcoholic cardiomyopathy with his most recent EF that I could find in the chart at 40%. Associated symptoms: Reports dyspnea and palpitations; Deny abdominal pain or fever(s) Related Data Home Medications ?Medication ?Instructions ?Recorded ?Confirmed nitroglycerin 0.4 mg sublingual 0.4 mg sublingual Q5M PRN Chest 01/30/21 11/06/24 tablet (Nitrostat) Pain Allergies Allergy/AdvReac Type Severity Reaction Status Date / Time No Known Allergies Allergy Verified 09/23/22 12:17 Review of Systems 2 Const: Denies: fever(s) or chills Card: Reports: chest pain and palpitations Resp: Reports: dyspnea GI: Denies: abdominal pain : Denies: dysuria, urinary frequency or urinary urgency Musc: Denies: neck pain or back pain Skin/Breast: Denies: rash PFSH ED 2 PFSH: Medical History Essential hypertension Tobacco use History of NM (myocardial infarction) Migraines Osteoarthritis Hyperlipidemia Pneumonia COVID-19 Cardiomyopathy Nonischemic with last EF around 40% Hypertensive left ventricular hypertrophy with heart failure Surgical History No history of previous surgery Family History Mother CAD (coronary artery disease) Myocardial infarction Social History Smoking and tobacco/nicotine status: current every day tobacco/nicotine user Second hand smoke exposure: No Alcohol intake: never Substance/Drug Use: unknown Adopted: No Caregiver/support person: No Lives independently: Yes Household members: significant other Housing: House Marital status: Number of children: 8 service: No Current occupational status: employed 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 Pets and animals: Yes Pets & animals: cat(s) Do you think of yourself as: Straight/Heterosexual Current gender identity: Male Physical Exam 2 Const: GENERAL APPEARANCE: cooperative ORIENTATION/CONSCIOUSNESS: Yes awake, Yes oriented to person, Yes oriented to place and Yes oriented to time HENMT: COMMON NORMALS: normocephalic, atraumatic and hearing grossly normal bilaterally HEAD & SCALP: normocephalic and atraumatic Resp: COMMON NORMALS: normal respiratory effort, No retractions, No use of accessory muscles and clear to auscultation bilaterally AUSCULTATION: clear to auscultation bilaterally Cardio: COMMON NORMALS: regular rhythm and No murmurs present (Cardio) R ATE: tachycardic RHYTHM: regular rhythm OTHER: Patient is diaphoretic GI: COMMON NORMALS: Soft to palpation and No hepatosplenomegaly present A USCULTATION: Yes normoactive bowel sounds PALPATION: Yes Soft to palpation, No Tenderness to palpation present (GI), No Guarding due to palpation present (GI) and Yes No hepatosplenomegaly present Extremity: COMMON NORMALS: normal to inspection, capillary refill normal, no clubbing, cyanosis or edema, no calf tenderness and no pedal edema Neuro: SENSORIUM/ORIENTATION: Yes oriented to person, Yes oriented to place and Yes oriented to time Skin: COMMON NORMALS: no rashes or lesions noted GENERAL SKIN EXAM: no rashes or lesions noted Course 2 Vital Signs: Vital signs: Vital Signs Temperature 98.1 F 11/06/24 12:50 Pulse Rate 89 11/06/24 14:40 Respiratory Rate 18 11/06/24 13:30 Blood Pressure 132/79 11/06/24 14:40 Pulse Oximetry 97 11/06/24 14:40 Oxygen Delivery Me thod Room Air 11/06/24 14:40 MDM - Chest Pain Medical Decision Making Patient diaphoretic with ST depression in the inferior and lateral leads when he arrives. Low-dose metoprolol resolved his tachycardia his chest pain and his diaphoresis improved with the EKG changes are persisting. Initial troponin unremarkable. EKGs read in comparison to previous EKG from February 2024. Given his known history of coronary artery disease onset with the symptoms at rest dynamic EKG changes resolved with rate control we will go ahead and admit the patient discussed with the hospitalist as well as consulted cardiology. Reviewed findings with the patient. Lab Data 11/06/24 12:30 11/06/24 12:30 Radiology Impressions Chest X-Ray 11/06/24 12:56 IMPRESSION: Concern for the right hilar region as described above. In view of the history of chest pain and even more more significantly if the patient is a smoker a CT scan of the chest with contrast may be appropriate to rule out ascending aortic abnormality or neoplastic mass would be reasonable. Laboratory Results WBC 11.67 10^3/uL (3.29-11.43) H 11/06/24 12:30 RBC 5.15 10^6/uL (3.85-5.65) 11/06/24 12:30 Hgb 15.60 g/dL (11.27-16.99) 11/06/24 12:30 Hct 46.8 % (37-53) 11/06/24 12:30 MCV 90.9 fl (82-101) 11/06/24 12:30 MCH 30.3 pg (27-33) 11/06/24 12:30 MCHC 33.3 g/dL (30-55) 11/06/24 12:30 RDW 11.9 % (12.1-15.1) L 11/06/24 12:30 Plt Count 301 10^3/cmm (157-399) 11/06/24 12:30 MPV 10.5 fL (7.4-10.4) H 11/06/24 12:30 Neut % (Auto) 77.3 % 11/06/24 12:30 Lymph % (Auto) 15.2 % 11/06/24 12:30 [place] % (Auto) 6.3 % 11/06/24 12:30 Eos % (Auto) 0.5 % 11/06/24 12:30 Baso % (Auto) 0.4 % 11/06/24 12:30 Neut # (Auto) 9.02 10^3/uL (1.8-7.7) H 11/06/24 12:30 Lymph # (Auto) 1.8 10^3/uL (0.8-4.8) 11/06/24 12:30 Daniels # (Auto) 0.7 10^3/uL (0.2-0.9) 11/06/24 12:30 Eos # (Auto) 0.1 10^3/uL (0.0-0.8) 11/06/24 12:30 Baso # (Auto) 0.1 10^3/uL (0.0-0.1) 11/06/24 12:30 Nucleated RBC % (auto) 0 % 11/06/24 12:30 Nucleated RBCs # 0.0 /100WBC 11/06/24 12:30 Sodium 140 mmol/L (136-145) 11/06/24 12:30 Potassium 4.7 mmol/L (3.5-5.1) 11/06/24 12:30 Chloride 103 mmol/L (98-107) 11/06/24 12:30 Carbon Dioxide 25 mmol/L (22-29) 11/06/24 12:30 Anion Gap 16.7 (5-19) 11/06/24 12:30 BUN 20 mg/dL (6-20) 11/06/24 12:30 Creatinine 1.0 mg/dL (0.7-1.2) 11/06/24 12:30 GFR Calculation 77.6 mL/min (90-130) L 11/06/24 12:30 Glucose 150 mg/dL (65-115) H 11/06/24 12:30 Calculated Osmolality 295 mOsm/kg (285-295) 11/06/24 12:30 Calcium 9.9 mg/dL (8.5-10.5) 11/06/24 12:30 Total Bilirubin 0.4 mg/dL (0.15-1.2) 11/06/24 12:30 AST 17 U/L (0-40) 11/06/24 12:30 ALT 17 U/L (0-41) 11/06/24 12:30 Alkaline Phosphatase 92 U/L (40-130) 11/06/24 12:30 Troponin T Baseline 10 ng/L (0-15) 11/06/24 12:30 Troponin T 120 Minute 9.26 ng/L (0-15) 11/06/24 14:28 Delta Troponin T -0.74 ABS# (0-10) L 11/06/24 14:28 NT-Pro-B Natriuret Pep 210 pg/mL (0-125) H 11/06/24 12:30 Total Protein 7.4 g/dL (6.6-8.7) 11/06/24 12:30 Albumin 4.4 g/dL (3.5-5.2) 11/06/24 12:30 Globulin 3.0 g/dL (1.3-4.6) 11/06/24 12:30 Procalcitonin 0.03 ng/mL (0-0.5) 11/06/24 12:30 All radiology interpretation(s) finalized by discharge Discharge Plan Discharge Patient Disposition: Admitted As Inpatient Admit Provider: Elijah Carrington Clinical Impression: Unstable angina pectoris, Acute electrocardiogram changes, History of CAD (coronary artery disease), Cardiomyopathy Condition: Stable Coding Level of Care Code ED Ship Scraper for Carlos Longo
[2024-11-06 13:05] LABS: Basophils # 0.1 10^3/uL (0.0-0.1); Basophils % 0.4 %; Eosinophils # 0.1 10^3/uL (0.0-0.8); Eosinophils % 0.5 %; Hematocrit 46.8 % (37-53); Lymphocytes # 1.8 10^3/uL (0.8-4.8); Lymphocytes % 15.2 %; Mean Corpuscular HGB Conc 33.3 g/dL (30-55); Mean Corpuscular Hemoglobin 30.3 pg (27-33); Mean Corpuscular Volume 90.9 fl (82-101); Mean Platelet Volume 10.5 fL (7.4-10.4); Monocytes # 0.7 10^3/uL (0.2-0.9); Monocytes % 6.3 %; Neutrophils # 9.02 10^3/uL (1.8-7.7); Neutrophils % 77.3 %; Nucleated Red Blood Cells % 0 %; Platelet Count 301 10^3/cmm (157-399); Red Blood Count 5.15 10^6/uL (3.85-5.65); Red Cell Distribution Width 11.9 % (12.1-15.1); White Blood Count 11.67 10^3/uL (3.29-11.43)
[2024-11-06] MEDS: metoprolol tartrate 1 mg/1 mL SDV 5 mL 2.5 MG IVP (13:13)
[2024-11-06] MEDS: ondansetron 2 mg/ML SDV 2 mL 4 MG IVP (13:13)
[2024-11-06] MEDS: morphine 4 mg/mL SDV 1 mL IVP (13:13)
--- NOTE | 2024-11-06 13:18 | ECG_ITS ---
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 Measurements Intervals [place] Rate: 82 P: 57 SD: 141 QRS: 42 QRSD: 91 T: -80 QT: 373 QTc: 438 Interpretive Statements SINUS RHYTHM LEFT VENTRICULAR HYPERTROPHY AND ST-T CHANGE [VOLTAGE CRITERIA PLUS ST/T ABNORMALITY] Compared to ECG 11/06/2024 12:50:16 Sinus tachycardia no longer present Short SD interval no longer present ST (T wave) deviation still present Electronically Signed On 11-08-2024 23:44:51 CDT by Autumn Benoit M.D. [email or web address] [id number]
[2024-11-06 13:23] LABS: Troponin(5th) Baseline 10 ng/L (0-15)
[2024-11-06 13:29] LABS: Alanine Aminotransferase 17 U/L (0-41); Albumin Level 4.4 g/dL (3.5-5.2); Alkaline Phosphatase 92 U/L (40-130); Anion Gap 16.7 (5-19); Aspartate Amino Transferase 17 U/L (0-40); Blood Urea Nitrogen 20 mg/dL (6-20); Calcium 9.9 mg/dL (8.5-10.5); Carbon Dioxide 25 mmol/L (22-29); Chloride 103 mmol/L (98-107); Creatinine Clr Calc Pharmacy 106.3737; Glomerular Filtration Rate 77.6 mL/min (90-130); Glucose 150 mg/dL (65-115); Osmolality Calculated 295 mOsm/kg (285-295); Potassium 4.7 mmol/L (3.5-5.1); Sodium 140 mmol/L (136-145); Total Bilirubin 0.4 mg/dL (0.15-1.2); Total Protein 7.4 g/dL (6.6-8.7)
[2024-11-06 13:41] LABS: NT Pro B Type Natriuretic Pept 210 pg/mL (0-125); Procalcitonin 0.03 ng/mL (0-0.5)
--- NOTE | 2024-11-06 14:07 | PC.PHAR ---
Pt stated he only has Nitro Stat for chest pain. Phoned [facility]-they have not filled since 01/2023 and [facility] they have not filled in 2 years either.
--- NOTE | 2024-11-06 14:31 | CT_ITS ---
WS: [id number] CTA OF THE CHEST WITH PULMONARY EMBOLISM PROTOCOL TECHNIQUE: High-resolution contrast enhanced CTA of the chest with coronal and sagittal reformatted images with pulmonary embolism protocol. MIP images are also reviewed. CLINICAL INFORMATION: abnormal cxr COMPARISON: Chest radiograph earlier today DLP: 370.[address] scans at [facility] use at least one of these dose optimization techniques: automated exposure control; mA and/or kV adjustment per patient size (includes targeted exams where dose is matched to clinical indication); or iterative reconstruction. FINDINGS: Proximal main pulmonary arteries are normal. Normal segmental and subsegmental pulmonary arteries. No evidence of pulmonary embolus. Lungs are well aerated. Slight bibasilar atelectasis. Ascending thoracic aorta measures 3.4 cm. Adrenal glands are normal. Splenic artery calcification. CT/CT angio chest PE protcl [id number] IMPRESSION: 1. No evidence of pulmonary embolus. 2. Lungs are well aerated. No acute pulmonary infiltrates. 3. Slight bibasilar atelectasis. 4. No other acute findings.
[2024-11-06 14:53] LABS: Troponin 5 2HR 9.26 ng/L (0-15)
[2024-11-06 14:55] LABS: Troponin 5 2HR Delta -0.74 ABS# (0-10)
[2024-11-06] MEDS: iohexol 350 mg/mL 500 mL Btl (per mL) IV (14:59)
--- NOTE | 2024-11-06 16:25 | PC.NURSE ---
Patient is transferred from ED to CSU via a wheelchair at 1625.
--- NOTE | 2024-11-06 16:41 | P.HP_ITS ---
Providers/Chief Complaint 2 Admitting Physician: Elijah Carrington MD Primary Care Provider: YAYO Reyes Chief Complaint: chest pain History of Present Illness Orlin De Sr is a 54 year old male with history of cardiomyopathy follows with cardiology, presents with complaint of chest pain since 10:00 this morning. He reports it was left-sided. He did have some shortness of breath tachycardia. Symptoms lasted for about 2 hours. He reports that symptoms started while he was sleeping. En route to the ER he was given Zofran, aspirin, nitro. Subsequently his pain is better. He also reports that his breathing is better. He continues to smoke. His initial troponin was negative in the ER. He was noted to have some EKG changes. He does report that he has had stress test in the past. Review of Systems 2 General: Reports: 10 or more systems reviewed and unremarkable except in HPI and below Const: Denies: fever(s), chills or body aches Card: Reports: chest pain Resp: Reports: dyspnea Medications/Allergies Home Medications ?Medication ?Instructions ?Recorded ?Confirmed ?Last Taken ?Type nitroglycerin 0.4 mg sublingual 0.4 mg sublingual Q5M PRN Chest 01/30/21 11/06/24 7 Days Ago History tablet (Nitrostat) Pain ~02/25/22 Allergies Allergy/AdvReac Type Severity Reaction Status Date / Time No Known Allergies Allergy Verified 09/23/22 12:17 PFSH Acute 2 PFSH: Medical History Essential hypertension Tobacco use History of [place] (myocardial infarction) Migraines Osteoarthritis Hyperlipidemia Pneumonia COVID-19 Cardiomyopathy Nonischemic with last EF around 40% Hypertensive left ventricular hypertrophy with heart failure Surgical History No history of previous surgery Family History Mother CAD (coronary artery disease) Myocardial infarction Social History Smoking and tobacco/nicotine status: current every day tobacco/nicotine user Second hand smoke exposure: No Alcohol intake: never Substance/Drug Use: unknown Adopted: No Caregiver/support person: No Lives independently: Yes Household members: significant other Housing: House Marital status: Number of children: 8 service: No Current occupational status: employed 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 Pets and animals: Yes Pets & animals: cat(s) Do you think of yourself as: Straight/Heterosexual Current gender identity: Male Vitals/I&O/Wt Last Vital Signs Temp 98.1 F 11/06/24 12:50 Pulse 90 11/06/24 16:19 Resp 18 11/06/24 13:30 BP 131/85 11/06/24 16:19 Pulse Ox 98 11/06/24 16:19 O2 Del Method Room Air 11/06/24 15:35 Weight last 48 hrs Weight 195 lb Weight 240 lb Physical Exam 2 Const: COMMON NORMALS: no acute distress and patient oriented x3 HENMT: COMMON NORMALS: normocephalic Chest: COMMONS NORMALS: normal inspection of the chest Cardio: COMMON NORMALS: no JVD, regular rate and regular rhythm GI: INSPECTION: Yes normal to inspection PALPATION: Yes Soft to palpation and No Tenderness to palpation present (GI) Neuro: COMMON NORMALS: patient oriented x3 Data 11/06/24 12:30 11/06/24 12:30 A&P Assessment and plan (1) Acute electrocardiogram changes: (2) History of CAD (coronary artery disease): (3) Unstable angina pectoris: (4) Essential hypertension: (5) Methamphetamine dependence, episodic: Plan Admit patient to [facility] Keep on telemetry Check echocardiogram Serial cardiac enzymes Continue aspirin, statin Cardiology consultation Patient counseled about polysubstance use DVT: Lovenox Code: Full PDMP PDMP Reviewed: Not Reviewed Attestations 2 Medical Necessity Statement*: chest pain. Coding Level of Care Code 05450 Diagnoses Acute electrocardiogram changes R94.31 History of CAD (coronary artery disease) Z86.79 Unstable angina pectoris I20.0 Essential hypertension I10 Methamphetamine dependence, episodic F15.20
--- NOTE | 2024-11-06 16:51 | USCV_ITS ---
Orlin De Age: 54 Gender: M : 1970 Exam Date: 11/06/2024 18:35 Ordering Phys: Elijah Carrington MD Technologist: SERGEY Exam Location: [facility] Indication: chest pain, history of CM, long-term smoker, continues smoking BP: 147 / 96 HR: 105 Rhythm: Sinus Technical Quality: Adequate MEASUREMENTS (Male / Female) Normal Values 2D ECHO LV Diastolic Diameter PLAX 5.3 cm 4.2 - 5.9 / 3.9 - 5.3 cm IVS Diastolic Thickness 1.6 cm 0.6 - 1.0 / 0.6 - 0.9 cm IVS Systolic Thickness 2.1 cm LVPW Diastolic Thickness 1.8 cm 0.6 - 1.0 / 0.6 - 0.9 cm LVPW Systolic Thickness 2.2 cm LVOT Diameter 2.3 cm LV Ejection Fraction 2D Teich 40.7 % LV Ejection Fraction MOD 4C 48.2 % LV Ejection Fraction MOD 2C 38.1 % LV Ejection Fraction 2C AL 39.1 % LA Diameter 3.5 cm Aorta at Sinotubular Diameter 3.3 cm IVC Diameter 1.3 cm M-MODE LA Ao Ratio MM 1.4 AV Cusp Separation MM 2.3 cm DOPPLER AV Peak Velocity 131.0 cm/s LVOT Peak Velocity 75.0 cm/s AV Area Cont Eq vti 3.0 cm squared AV Area Cont Eq pk 2.4 cm squared MV Peak Velocity 114.0 cm/s MV Area PHT 9.2 cm squared Mitral E to A Ratio 1.3 TV Peak E Velocity 44.0 cm/s PV Peak Velocity 87.0 cm/s FINDINGS Left Ventricle Diffuse hypokinesis of the left ventricle with ejection fraction of 38.5%. Mildly dilated LV cavity.Grade III/IV diastolic dysfunction (restrictive filling pattern), severely elevated filling pressures. Right Ventricle Normal right ventricular size and systolic function. Right Atrium Normal right atrial size. Left Atrium Normal left atrial size. Mitral Valve Trace to mild mitral valve regurgitation. Aortic Valve No gross abnormalities noted Tricuspid Valve No gross abnormalities noted Pulmonic Valve No gross abnormalities noted Pericardium No pericardial effusion. Aorta Normal aortic annulus size. IVC Normal inferior vena cava. CONCLUSIONS Diffuse hypokinesis of the left ventricle with ejection fraction of 38.5%. Mildly dilated LV cavity.Grade III/IV diastolic dysfunction (restrictive filling pattern), severely elevated filling pressures. Trace to mild mitral valve regurgitation. There is no pericardial effusion. There are no intracardiac masses. Compared to the study from 02/14/2021 there is no significant change in the LV ejection fraction. Dr Autumn Benoit MD [facility] (Electronically Signed) Final Date: 07 Nov 2024 13:59 S
--- NOTE | 2024-11-06 16:58 | PC.NURSE ---
Patient has order for a nitro drip, ED did not start this per ED provider since the patient was no longer having chest pain. Nitro drip on hold per ED.
[2024-11-06] MEDS: enoxaparin 40 mg/0.4 mL Syringe SUBCUT (17:51)
[2024-11-06 18:15] LABS: Troponin(5th) Baseline 10 ng/L (0-15)
--- NOTE | 2024-11-06 18:56 | ECG_ITS ---
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 Measurements Intervals [place] Rate: 108 P: 55 MA: 124 QRS: 38 QRSD: 98 T: 234 QT: 319 QTc: 429 Interpretive Statements SINUS TACHYCARDIA POSSIBLE LEFT ATRIAL ENLARGEMENT [-0.1mV P-WAVE IN V1/V2] LEFT VENTRICULAR HYPERTROPHY AND ST-T CHANGE [VOLTAGE CRITERIA PLUS ST/T ABNORMALITY] Compared to ECG 11/06/2024 13:18:18 Sinus rhythm no longer present ST (T wave) deviation still present Electronically Signed On 11-08-2024 23:41:42 CDT by Autumn Benoit M.D. [id number]
--- NOTE | 2024-11-06 18:56 | ECG_ITS ---
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 Measurements Intervals [place] Rate: 99 P: 61 [place]: 124 QRS: 52 QRSD: 87 T: 220 QT: 333 QTc: 429 Interpretive Statements SINUS RHYTHM LEFT VENTRICULAR HYPERTROPHY AND ST-T CHANGE [VOLTAGE CRITERIA PLUS ST/T ABNORMALITY] Compared to ECG 11/06/2024 12:50:16 Sinus tachycardia no longer present Short IL interval no longer present ST (T wave) deviation still present Electronically Signed On 11-08-2024 23:44:54 CDT by Autumn Benoit M.D. [email or web address] [id number]
[2024-11-06 19:32] LABS: Troponin 5 2HR 9.27 ng/L (0-15)
[2024-11-06 19:36] LABS: Troponin 5 2HR Delta -0.73 ABS# (0-10)
--- NOTE | 2024-11-06 21:01 | P.CONIM_ITS ---
Providers/Reason For Consult 2 Consulting Physician/Specialty*: VIDYA Benoit MD/cardiology Reason for Consult*: Patient with history of nonischemic cardiomyopathy, presenting with chest pain and an abnormal EKG Requesting Physician: Dr. Carrington Attending Physician: Elijah Carrington MD Primary Care Provider: Mely Dawson, BARREL INSPECTOR TIGHT-C History of Present Illness History of Present Illness Orlin De Sr is a 54 year old male He is admitted to the hospital through the emergency room, where he presented with the complaints of chest pain. This patient has a history Of cardiomyopathy and hypertension. This patient is a very poor historian. According to him, he has been doing okay up until early this morning when he woke up with chest pain. The pain mainly Was in the upper substernal region, lasted for 45 minutes or so. Intensity of the pain was moderate to severe, was radiating across the chest. Associated with some shortness of breath. No palpitation, dizziness or syncopal episode. No nausea vomiting or sweating. No other associated symptoms or radiation of pain. Currently at the time of my examination, the patient is pain-free. This patient has a history of substance abuse, alcohol abuse and smoking abuse. According to him, he has not used any illicit drugs for the last 2 years or so. He has cut down on the smoking and currently smokes half pack a day. Denies any alcohol abuse. He had multiple incarcerations in the past. According to him, he has been staying at home for the last 2 to 3 years. he is noted any medications at this time. Apparently he stopped taking the medications a few years ago. 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 Based on the records, he had a coronary angiogram in 2015 and was found to have mild intimal irregularities. In 2018, the LV ejection fraction was found to be 32%. He was on a LifeVest for a while. Denies any fever, chills or cough. No other specific complaints. He has a family history of atherosclerotic heart disease. Both maternal grandfather and grandmother had heart attacks in their 70s?. His father also had heart attack? In his 60s. One of his brothers is known to have chest pain. Details are not available at this time. Review of Systems 2 Narrative: CONSTITUTIONAL: No fever or chills. EYES: No blurring of vision or other visual disturbances lately. ENT: No hoarseness of voice, auditory disturbances or sore throat. CARDIOVASCULAR: As mentioned above. RESPIRATORY: No significant cough. GASTROINTESTINAL: No hematemesis or melena. GENITOURINARY: No dysuria or hematuria. INTEGUMENTARY: No skin rashes or history of skin cancer. NEURO: No transient ischemic attacks or amaurosis. PSYCHIATRIC: No history of psychosis or major depression. HEMATOLOGIC: No bleeding disorders or significant anemia. ENDOCRINE: No history of polyuria or polydipsia. MUSCULOSKELETAL: No recent joint pain or swelling. ALLERGY/IMMUNOLOGY: As mentioned above. Medications/Allergies Home Medications ?Medication ?Instructions ?Recorded ?Confirmed ?Last Taken ?Type nitroglycerin 0.4 mg sublingual 0.4 mg sublingual Q5M PRN Chest 01/30/21 11/06/24 7 Days Ago History tablet (Nitrostat) Pain ~02/25/22 Allergies Allergy/AdvReac Type Severity Reaction Status Date / Time No Known Allergies Allergy Verified 09/23/22 12:17 Current Medications Generic Name Dose Route Start Last Admin Trade Name Freq PRN Reason Stop Dose Admin Enoxaparin Sodium 40 mg 11/06/24 17:00 11/06/24 17:51 Enoxaparin 40 Mg/0.4 Ml Syringe SUBCUT 40 mg Q24H SHAYY Administration PFSH Acute 2 PFSH: Medical History Essential hypertension Tobacco use History of [place] (myocardial infarction) Migraines Osteoarthritis Hyperlipidemia Pneumonia COVID-19 Cardiomyopathy Nonischemic with last EF around 40% Hypertensive left ventricular hypertrophy with heart failure Surgical History No history of previous surgery Family History Mother CAD (coronary artery disease) Myocardial infarction Social History Smoking and tobacco/nicotine status: current every day tobacco/nicotine user Second hand smoke exposure: No Alcohol intake: never Substance/Drug Use: unknown Adopted: No Caregiver/support person: No Lives independently: Yes Household members: significant other Housing: House Marital status: Number of children: 8 service: No Current occupational status: employed 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 Not in any acute distress. HEENT: No significant pallor, icterus or lymphadenopathy.Oral cavity: There are no mucous membrane lesions. NECK: Trachea appears to be central. No masses noted. No JVD or thyromegaly appreciated. RESPIRATORY: Chest is symmetrical. No intercostals muscle retraction or any accessory muscle activation. There is no chest wall tenderness. Breath sounds are heard bilaterally. No rales or rhonchi heard. No evidence of any consolidation. BREASTS: Deferred. HEART: The heart sounds are normal. No S3 or S4. No significant murmurs. No pericardial rub ABDOMEN: No vessel pulsations or distention. No tenderness. No organomegaly appreciated. Bowel sounds are normally heard. : Deferred. RECTAL: Deferred. LYMPHATIC: No lymphadenopathy noted in the neck. EXTREMITIES: No edema or cyanosis. No clubbing. MUSCULOSKELETAL: No acute joint deformities or swelling SKIN: There are no significant rashes or ecchymosis NEUROPSYCHIATRIC: The patient is alert and oriented x3. Appears to be in a good mood. No tremors or rigidity noted. Data 11/06/24 12:30 11/06/24 12:30 Other Labs: Laboratory Last Values WBC 11.67 10^3/uL (3.29-11.43) H 11/06/24 12:30 RBC 5.15 10^6/uL (3.85-5.65) 11/06/24 12:30 Hgb 15.60 g/dL (11.27-16.99) 11/06/24 12:30 Hct 46.8 % (37-53) 11/06/24 12:30 MCV 90.9 fl (82-101) 11/06/24 12:30 MCH 30.3 pg (27-33) 11/06/24 12:30 MCHC 33.3 g/dL (30-55) 11/06/24 12:30 RDW 11.9 % (12.1-15.1) L 11/06/24 12:30 Plt Count 301 10^3/cmm (157-399) 11/06/24 12:30 MPV 10.5 fL (7.4-10.4) H 11/06/24 12:30 Neut % (Auto) 77.3 % 11/06/24 12:30 Lymph % (Auto) 15.2 % 11/06/24 12:30 [place] % (Auto) 6.3 % 11/06/24 12:30 Eos % (Auto) 0.5 % 11/06/24 12:30 Baso % (Auto) 0.4 % 11/06/24 12:30 Neut # (Auto) 9.02 10^3/uL (1.8-7.7) H 11/06/24 12:30 Lymph # (Auto) 1.8 10^3/uL (0.8-4.8) 11/06/24 12:30 [place] # (Auto) 0.7 10^3/uL (0.2-0.9) 11/06/24 12:30 Eos # (Auto) 0.1 10^3/uL (0.0-0.8) 11/06/24 12:30 Baso # (Auto) 0.1 10^3/uL (0.0-0.1) 11/06/24 12:30 Nucleated RBC % (auto) 0 % 11/06/24 12:30 Nucleated RBCs # 0.0 /100WBC 11/06/24 12:30 Sodium 140 mmol/L (136-145) 11/06/24 12:30 Potassium 4.7 mmol/L (3.5-5.1) 11/06/24 12:30 Chloride 103 mmol/L (98-107) 11/06/24 12:30 Carbon Dioxide 25 mmol/L (22-29) 11/06/24 12:30 Anion Gap 16.7 (5-19) 11/06/24 12:30 BUN 20 mg/dL (6-20) 11/06/24 12:30 Creatinine 1.0 mg/dL (0.7-1.2) 11/06/24 12:30 GFR Calculation 77.6 mL/min (90-130) L 11/06/24 12:30 Glucose 150 mg/dL (65-115) H 11/06/24 12:30 Calculated Osmolality 295 mOsm/kg (285-295) 11/06/24 12:30 Calcium 9.9 mg/dL (8.5-10.5) 11/06/24 12:30 Total Bilirubin 0.4 mg/dL (0.15-1.2) 11/06/24 12:30 AST 17 U/L (0-40) 11/06/24 12:30 ALT 17 U/L (0-41) 11/06/24 12:30 Alkaline Phosphatase 92 U/L (40-130) 11/06/24 12:30 Troponin T Baseline 10 ng/L (0-15) 11/06/24 17:34 Troponin T 120 Minute 9.27 ng/L (0-15) 11/06/24 18:48 Delta Troponin T -0.73 ABS# (0-10) L 11/06/24 18:48 NT-Pro-B Natriuret Pep 210 pg/mL (0-125) H 11/06/24 12:30 Total Protein 7.4 g/dL (6.6-8.7) 11/06/24 12:30 Albumin 4.4 g/dL (3.5-5.2) 11/06/24 12:30 Globulin 3.0 g/dL (1.3-4.6) 11/06/24 12:30 Procalcitonin 0.03 ng/mL (0-0.5) 11/06/24 12:30 Other data: The EKG showed sinus tachycardia with a heart rate of [address]-T changes. Compared to the previous EKGs from 2020 and , the ST-T changes appears to be slightly more prominent Chest CTA from today, 11/06/2024 1. No evidence of pulmonary embolus. 2. Lungs are well aerated. No acute pulmonary infiltrates. 3. Slight bibasilar atelectasis. 4. No other acute findings. A&P Assessment and plan (1) Chest pain: The patient chest pain is very atypical. Etiology is unclear. Coronary ischemia is a consideration. Pulmonary embolism is ruled out by CTA. Cardiac enzymes are negative for medical injury so far. (2) Nonischemic dilated cardiomyopathy: Patient has a history of nonischemic cardiomyopathy. Ejection fraction was 40% by echocardiogram in 2020. Currently he has no evidence of any heart failure. (3) Essential hypertension: The blood pressure is mildly elevated. Need to optimize the antihypertensive medications. (4) Abnormal EKG: the EKG may suggest underlying coronary ischemia. However he had a more or less similar EKG changes in the past. But the current changes seems to be more prominent. (5) Tobacco use: Patient strongly advised to quit smoking. Plan Echocardiogram would be helpful to evaluate LV function and rule out any other pathology. If there is no evidence of myocardium today, for further evaluation of his symptoms, a Myocardial perfusion imaging would be appropriate. I may go ahead and schedule this patient for an exercise/sestamibi / sestamibi stress test in the morning based on the patient clinical progress on the results of the above, further recommendations will be made thank you for the opportunity to evaluate this patient and make these recommendations PDMP PDMP Reviewed: Not Reviewed Coding Level of Care Code 15954 Diagnoses Other chest pain R07.89 Chest pain type: other chest pain Nonischemic dilated cardiomyopathy I42.0 Essential hypertension I10 Abnormal EKG R94.31 Tobacco use Z72.0
--- NOTE | 2024-11-06 21:51 | ECG_ITS ---
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 Interpretive Statements Lung unchanged pre/post procedure; Intraprocedure shortess of breath; Symptoms resoled by discharge [email or web address] [id number]
--- NOTE | 2024-11-06 22:56 | ECG_ITS ---
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 Measurements Intervals [place] Rate: 92 P: 55 [place]: 134 QRS: 33 QRSD: 97 T: 242 QT: 345 QTc: 428 Interpretive Statements SINUS RHYTHM LEFT VENTRICULAR HYPERTROPHY AND ST-T CHANGE [VOLTAGE CRITERIA PLUS ST/T ABNORMALITY] Compared to ECG 11/06/2024 18:26:58 Sinus tachycardia no longer present ST (T wave) deviation still present Electronically Signed On 11-08-2024 23:41:19 CDT by Autumn Benoit M.D. [email or web address] [id number]
[2024-11-06 23:57] LABS: Troponin 5 6HR 9.13 ng/L (0-15)
[2024-11-06 23:58] LABS: Troponin 5 6HR Delta -0.87 ng/L (0-12)
[2024-11-07] VITALS (55 sets, daily range): BP systolic 135–152; BP diastolic 82–112; PULSE 64–108; RESP 14–21; TEMP 36.6–36.9; O2SAT 94–98
--- NOTE | 2024-11-07 01:26 | ECG_ITS ---
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 Measurements Intervals [place] Rate: 87 P: 60 IL: 127 QRS: 43 QRSD: 89 T: 253 QT: 351 QTc: 424 Interpretive Statements SINUS RHYTHM LEFT VENTRICULAR HYPERTROPHY AND ST-T CHANGE [VOLTAGE CRITERIA PLUS ST/T ABNORMALITY] Compared to ECG 11/06/2024 22:50:38 No significant changes Electronically Signed On 11-08-2024 23:28:43 CDT by Autumn Benoit M.D. [email or web address] [id number]
[2024-11-07] MEDS: nitroglycerin 0.4 mg sublingual Tablet SUBLINGUAL (01:43)
[2024-11-07] MEDS: metoprolol tartrate 25 mg Tablet PO ×2 (01:48→09:03)
[2024-11-07] MEDS: morphine 4 mg/mL SDV 1 mL 2 MG IVP (01:48)
--- NOTE | 2024-11-07 02:51 | PC.NURSE ---
Patient complaining of chest pain. Obtained EKG and administered PRN Nitroglycerin Sublingual. Contacted Dr. Mcmahan. Given orders for Morphine 2mg IVP ONCE and Metoprolol 25 PO BID due to HR greater then 100.
[2024-11-07 05:35] LABS: Basophils % 0.5 %; Eosinophils # 0.1 10^3/uL (0.0-0.8); Eosinophils % 1.2 %; Lymphocytes # 1.7 10^3/uL (0.8-4.8); Lymphocytes % 20.1 %; Mean Corpuscular HGB Conc 32.6 g/dL (30-55); Mean Corpuscular Volume 92.3 fl (82-101); Mean Platelet Volume 10.9 fL (7.4-10.4); Monocytes # 0.9 10^3/uL (0.2-0.9); Monocytes % 10.1 %; Neutrophils # 5.72 10^3/uL (1.8-7.7); Neutrophils % 67.9 %; Nucleated Red Blood Cells % 0 %; Platelet Count 264 10^3/cmm (157-399); Red Blood Count 4.66 10^6/uL (3.85-5.65); Red Cell Distribution Width 11.9 % (12.1-15.1); White Blood Count 8.42 10^3/uL (3.29-11.43)
[2024-11-07 05:46] LABS: Estmated Average Glucose 111; Hemoglobin A1C 5.5 % (4.0-6.0)
[2024-11-07 06:02] LABS: Chol HDL Ratio 3.56 mg/dL (1.0-5.00); Cholesterol 146 mg/dL (0-200); HDL Cholesterol 41 mg/dL (60-100); LDL Cholesterol Calculated 77 mg/dL (50-129); LDL HDL Ratio 1.88 RATIO (0.00-3.22); Triglycerides 140 mg/dL (0-150)
[2024-11-07 06:05] LABS: Blood Urea Nitrogen 22 mg/dL (6-20); Calcium 9.2 mg/dL (8.5-10.5); Carbon Dioxide 28 mmol/L (22-29); Chloride 103 mmol/L (98-107); Creatinine Clr Calc Pharmacy 96.5421; Glomerular Filtration Rate 77.6 mL/min (90-130); Glucose 116 mg/dL (65-115); Osmolality Calculated 298 mOsm/kg (285-295); Sodium 142 mmol/L (136-145)
[2024-11-07 06:07] LABS: Anion Gap 15.7 (5-19); Potassium 4.7 mmol/L (3.5-5.1)
--- OUTSIDE RECORDS SUMMARY | 2024-11-07 07:16 | XMS_ITS | Patient Health Record ---
Author Organization [facility] Address [address] [place] [address] Care Team Providers Care Ibm Web[employer] Commerce Developer Name Role Phone Sajan Hall Unavailable [phone] Reason For Referral No Information Medications Medication SIG (Take, Route, Frequency, Duration) Notes Start Date End Date Status Nitroglycerin 0.4 MG Dissolve 1 tablet(s) under the tongue may repeat every 5 minutes. Maximum of 3 doses in 15 minutes Sublingual for 30 Nitroglycerin (Nitroglycerin) 0.4mg Tablets, Sublingual Dissolve 1 tablet(s) under the tongue may repeat every 5 minutes. Maximum of 3 doses in 15 minutes #4 (Four) 25 tablet bottle 08/30/2013 Active Simvastatin 20 MG Take 1 tablet(s) by mouth at bedtime Oral for 30 Simvastatin 20mg Tablet Take 1 tablet(s) by mouth at bedtime #30 (Thirty) tablet(s) 08/30/2013 Active Problems Problem Type SNOMED Code ICD Code Onset Dates Problem Status W/U Status Risk Notes Problem Carious exposure of pulp (059154462) Dental caries extending into pulp (521.03) 2004 Problem resolved confirmed [id number]- Problem Thoracic back pain (779325342) Upper back pain (724.1) 2006 Problem resolved confirmed [id number]- Problem Multiple joint pain (35025464) Diffuse arthralgia (719.49) 2006 Problem resolved confirmed [id number]- Problem Headache (35345352) Headache (307.81) 2004 Problem resolved confirmed [id number]- Problem Hypercholesterolemia (54043015) Hypercholesterolemia (272.0) 2006 Problem resolved confirmed [id number]- Problem Shoulder pain (66598800) Shoulder pain (719.41) 2007 Problem resolved confirmed [id number]- Problem Sore throat (492425398) Sore Throat (462) 2007 Problem resolved confirmed [id number]- Problem Acute exacerbation o f chronic obstructive airways disease (236825325) Acute exacerbation of chronic obstructive pulmonary disease (COPD) (491.21) 2005 Problem resolved confirmed [id number]- Problem Chest pain (43640809) Chest pain (786.51) 2013 Problem resolved confirmed [id number]- Problem Tobacco user (965816320) Cigarette smoking (305.1) 2008 Problem resolved confirmed [id number]- Problem Generalized abdomina l pain (354075921) Generalized abdominal pain (789.07) 2006 Problem resolved confirmed [id number]- Problem Swelling of limb (89365119) Hand swelling (729.81) 2004 Problem resolved confirmed [id number]- Problem Acquired keratoderma (798921768) Dry skin syndrome (701.1) 2005 Problem resolved confirmed [id number]- Problem Acute upper respiratory infection (61230828) Acute upper respiratory infection (465.8) 2004 Problem resolved confirmed [id number]- Problem Stress (106372745) Stress (300.02) 2006 Problem resolved confirmed [id number]- Problem Eye pain (50696936) Eye pain (379.91) 2008 Problem resolved confirmed [id number]- Problem Urinary hesitancy (9413790) Urinary hesitancy (788.62) 2006 Problem resolved confirmed [id number]- Problem Ankle pain (462996342) Ankle pain (719.47) 2005 Problem resolved confirmed [id number]- Problem Thoracic back pain (746284381) Upper Back Pain (724.2) 2006 Problem resolved confirmed [id number]- Problem Contact dermatitis (03552147) Dermatitis due to other specified agents, NEC (692.89) 2005 Problem resolved confirmed [id number]- Problem Nausea (835777280) Nausea (787.02) 2005 Problem resolved confirmed [id number]- Plan Of Treatment No Information Medical (General) History Surgical History Surgery Date(Month/Year) NONE
--- NOTE | 2024-11-07 07:21 | P.PN_ITS ---
Subjective 2 Subjective: Patient has not had a recurrence of chest pain since the hospital admission. Underwent a Myocardial perfusion imaging today. Was found to have no evidence of ischemia. Medications: Medication Review Details: Laboratory Last Values WBC 8.42 10^3/uL (3.2 9-11.43) 11/07/24 04:15 RBC 4.66 10^6/uL (3.8 5-5.65) 11/07/24 04:15 Hgb 14.00 g/dL (11.27 -16.99) 11/07/24 04:15 Hct 43.0 % (37-53) 11/07/24 04:15 MCV 92.3 fl (82-101) 11/07/24 04:15 MCH 30.0 pg (27-33) 11/07/24 04:15 MCHC 32.6 g/dL (30-55) 11/07/24 04:15 RDW 11.9 % (12.1-15.1 ) L 11/07/24 04:15 Plt Count 264 10^3/cmm (157 -399) 11/07/24 04:15 MPV 10.9 fL (7.4-10.4 ) H 11/07/24 04:15 Neut % (Auto) 67.9 % 11/07/24 04:15 Lymph % (Auto) 20.1 % 11/07/24 04:15 [place] % (Auto) 10.1 % 11/07/24 04:15 Eos % (Auto) 1.2 % 11/07/24 04:15 Baso % (Auto) 0.5 % 11/07/24 04:15 Neut # (Auto) 5.72 10^3/uL (1.8 -7.7) 11/07/24 04:15 Lymph # (Auto) 1.7 10^3/uL (0.8- 4.8) 11/07/24 04:15 [place] # (Auto) 0.9 10^3/uL (0.2- 0.9) 11/07/24 04:15 Eos # (Auto) 0.1 10^3/uL (0.0- 0.8) 11/07/24 04:15 Baso # (Auto) 0.0 10^3/uL (0.0- 0.1) 11/07/24 04:15 Nucleated RBC % (a uto) 0 % 11/07/24 04:15 Nucleated RBCs # 0.0 /100WBC 11/07/24 04:15 Sodium 142 mmol/L (136-1 45) 11/07/24 04:15 Potassium 4.7 mmol/L (3.5-5 .1) 11/07/24 04:15 Chloride 103 mmol/L (98-10 7) 11/07/24 04:15 Carbon Dioxide 28 mmol/L (22-29) 11/07/24 04:15 Anion Gap 15.7 (5-19) 11/07/24 04:15 BUN 22 mg/dL (6-20) H 11/07/24 04:15 Creatinine 1.0 mg/dL (0.7-1. 2) 11/07/24 04:15 GFR Calculation 77.6 mL/min (90-1 30) L 11/07/24 04:15 Glucose 116 mg/dL (65-115 ) H 11/07/24 04:15 Estimat Average Gl ucose 111 11/07/24 04:15 Hemoglobin A1c 5.5 % (4.0-6.0) 11/07/24 04:15 Calculated Osmolal ity 298 mOsm/kg (285- 295) H 11/07/24 04:15 Calcium 9.2 mg/dL (8.5-10 .5) 11/07/24 04:15 Magnesium 2.0 mg/dL (1.7-2. 3) 11/07/24 04:15 Total Bilirubin 0.4 mg/dL (0.15-1 .2) 11/06/24 12:30 AST 17 U/L (0-40) 11/06/24 12:30 ALT 17 U/L (0-41) 11/06/24 12:30 Alkaline Phosphata se 92 U/L (40-130) 11/06/24 12:30 Troponin T Baselin e 10 ng/L (0-15) 11/06/24 17:34 Troponin T 120 Min [place] 9.27 ng/L (0-15) 11/06/24 18:48 Delta Troponin T -0.73 ABS# (0-10) L 11/06/24 18:48 Troponin T Hi Sens 6Hr 9.13 ng/L (0-15) 11/06/24 23:32 Troponin T Hi Sens 6Hr Delta -0.87 ng/L (0-12) L 11/06/24 23:32 NT-Pro-B Natriuret Pep 210 pg/mL (0-125) H 11/06/24 12:30 Total Protein 7.4 g/dL (6.6-8.7 ) 11/06/24 12:30 Albumin 4.4 g/dL (3.5-5.2 ) 11/06/24 12:30 Globulin 3.0 g/dL (1.3-4.6 ) 11/06/24 12:30 Triglycerides 140 mg/dL (0-150) 11/07/24 04:15 Cholesterol 146 mg/dL (0-200) 11/07/24 04:15 LDL Cholesterol, C alc 77 mg/dL (50-129) 11/07/24 04:15 HDL Cholesterol 41 mg/dL (60-100) L 11/07/24 04:15 LDL/HDL Ratio 1.88 RATIO (0.00- 3.22) 11/07/24 04:15 Cholesterol/HDL Ra [place] 3.56 mg/dL (1.0-5 .00) 11/07/24 04:15 Procalcitonin 0.03 ng/mL (0-0.5 ) 11/06/24 12:30 Vitals/I&O/Wt Last Vital Signs Temp 97.8 F 11/07/24 04:00 Pulse 93 11/07/24 04:00 Resp 17 11/07/24 04:00 BP 145/97 11/07/24 04:00 Pulse Ox 98 11/07/24 04:00 O2 Del Method Room Air 11/07/24 04:00 11/06/24 11/07/24 11/07/24 22:59 06:59 14:59 Intake Total 0 / 0 200 / 200 Balance 0 / 0 200 / 200 Weight last 48 hrs Weight 194 lb 1.6 oz Weight 195 lb Weight 240 lb Physical Exam 2 Narrative: GENERAL: The patient is alert and oriented times three. Not in any acute distress. HEENT: No significant pallor, icterus or lymphadenopathy.Oral cavity: There are no mucous membrane lesions. NECK: Trachea appears to be central. No masses noted. No JVD or thyromegaly appreciated. RESPIRATORY: Chest is symmetrical. No intercostals muscle retraction or any accessory muscle activation. There is no chest wall tenderness. Breath sounds are heard bilaterally. No rales or rhonchi heard. No evidence of any consolidation. BREASTS: Deferred. HEART: The heart sounds are normal. No S3 or S4. No significant murmurs. No pericardial rub ABDOMEN: No vessel pulsations or distention. No tenderness. No organomegaly appreciated. Bowel sounds are normally heard. : Deferred. RECTAL: Deferred. LYMPHATIC: No lymphadenopathy noted in the neck. EXTREMITIES: No edema or cyanosis. No clubbing. MUSCULOSKELETAL: No acute joint deformities or swelling SKIN: There are no significant rashes or ecchymosis NEUROPSYCHIATRIC: The patient is alert and oriented x3. Appears to be in a good mood. No tremors or rigidity noted. Data 11/07/24 04:15 11/07/24 04:15 Other Labs: Laboratory Last Values WBC 8.42 10^3/uL (3.29-11.43) 11/07/24 04:15 RBC 4.66 10^6/uL (3.85-5.65) 11/07/24 04:15 Hgb 14.00 g/dL (11.27-16.99) 11/07/24 04:15 Hct 43.0 % (37-53) 11/07/24 04:15 MCV 92.3 fl (82-101) 11/07/24 04:15 MCH 30.0 pg (27-33) 11/07/24 04:15 MCHC 32.6 g/dL (30-55) 11/07/24 04:15 RDW 11.9 % (12.1-15.1) L 11/07/24 04:15 Plt Count 264 10^3/cmm (157-399) 11/07/24 04:15 MPV 10.9 fL (7.4-10.4) H 11/07/24 04:15 Neut % (Auto) 67.9 % 11/07/24 04:15 Lymph % (Auto) 20.1 % 11/07/24 04:15 Mayes % (Auto) 10.1 % 11/07/24 04:15 Eos % (Auto) 1.2 % 11/07/24 04:15 Baso % (Auto) 0.5 % 11/07/24 04:15 Neut # (Auto) 5.72 10^3/uL (1.8-7.7) 11/07/24 04:15 Lymph # (Auto) 1.7 10^3/uL (0.8-4.8) 11/07/24 04:15 [place] # (Auto) 0.9 10^3/uL (0.2-0.9) 11/07/24 04:15 Eos # (Auto) 0.1 10^3/uL (0.0-0.8) 11/07/24 04:15 Baso # (Auto) 0.0 10^3/uL (0.0-0.1) 11/07/24 04:15 Nucleated RBC % (auto) 0 % 11/07/24 04:15 Nucleated RBCs # 0.0 /100WBC 11/07/24 04:15 Sodium 142 mmol/L (136-145) 11/07/24 04:15 Potassium 4.7 mmol/L (3.5-5.1) 11/07/24 04:15 Chloride 103 mmol/L (98-107) 11/07/24 04:15 Carbon Dioxide 28 mmol/L (22-29) 11/07/24 04:15 Anion Gap 15.7 (5-19) 11/07/24 04:15 BUN 22 mg/dL (6-20) H 11/07/24 04:15 Creatinine 1.0 mg/dL (0.7-1.2) 11/07/24 04:15 GFR Calculation 77.6 mL/min (90-130) L 11/07/24 04:15 Glucose 116 mg/dL (65-115) H 11/07/24 04:15 Estimat Average Glucose 111 11/07/24 04:15 Hemoglobin A1c 5.5 % (4.0-6.0) 11/07/24 04:15 Calculated Osmolality 298 mOsm/kg (285-295) H 11/07/24 04:15 Calcium 9.2 mg/dL (8.5-10.5) 11/07/24 04:15 Magnesium 2.0 mg/dL (1.7-2.3) 11/07/24 04:15 Total Bilirubin 0.4 mg/dL (0.15-1.2) 11/06/24 12:30 AST 17 U/L (0-40) 11/06/24 12:30 ALT 17 U/L (0-41) 11/06/24 12:30 Alkaline Phosphatase 92 U/L (40-130) 11/06/24 12:30 Troponin T Baseline 10 ng/L (0-15) 11/06/24 17:34 Troponin T 120 Minute 9.27 ng/L (0-15) 11/06/24 18:48 Delta Troponin T -0.73 ABS# (0-10) L 11/06/24 18:48 Troponin T Hi Sens 6Hr 9.13 ng/L (0-15) 11/06/24 23:32 Troponin T Hi Sens 6Hr Delta -0.87 ng/L (0-12) L 11/06/24 23:32 NT-Pro-B Natriuret Pep 210 pg/mL (0-125) H 11/06/24 12:30 Total Protein 7.4 g/dL (6.6-8.7) 11/06/24 12:30 Albumin 4.4 g/dL (3.5-5.2) 11/06/24 12:30 Globulin 3.0 g/dL (1.3-4.6) 11/06/24 12:30 Triglycerides 140 mg/dL (0-150) 11/07/24 04:15 Cholesterol 146 mg/dL (0-200) 11/07/24 04:15 LDL Cholesterol, Calc 77 mg/dL (50-129) 11/07/24 04:15 HDL Cholesterol 41 mg/dL (60-100) L 11/07/24 04:15 LDL/HDL Ratio 1.88 RATIO (0.00-3.22) 11/07/24 04:15 Cholesterol/HDL Ratio 3.56 mg/dL (1.0-5.00) 11/07/24 04:15 Procalcitonin 0.03 ng/mL (0-0.5) 11/06/24 12:30 A&P Assessment and plan (1) Chest pain: The patient chest pain is very atypical. Etiology is unclear. Coronary ischemia is a consideration. Pulmonary embolism is ruled out by CTA. Cardiac enzymes are negative for medical injury so far. The Myocardial perfusion imaging revealed no evidence of ischemia. The implication of the test findings were discussed with the patient in detail which is understood well. (2) Nonischemic dilated cardiomyopathy: Patient has a history of nonischemic cardiomyopathy. Ejection fraction was 40% by echocardiogram in 2020. Currently he has no evidence of any heart failure. The echocardiogram revealed ejection fraction of 38.5%. Patient would benefit from GDMT. This was discussed with the patient in detail. Patient is not wanting to take any medications at this time. He seems to understand implications. According to him, he has not been taking the medication for a long time and has been feeling okay! (3) Essential hypertension: The blood pressure is mildly elevated. Need to optimize the antihypertensive medications. (4) Abnormal EKG: the EKG may suggest underlying coronary ischemia. However he had a more or less similar EKG changes in the past. But the current changes seems to be more prominent. (5) Tobacco use: Patient strongly advised to quit smoking. Plan The echo showed the LV ejection fraction of 38.5%. No significant change from the previous study. The importance of taking the medication as prescribed and implications of not taking the medication were discussed in detail. Patient is not interested in taking medication at this time. He might consider this later. If he is willing to come back to the clinic, make an appointment to be seen by nurse practitioner in 1-2 week PDMP PDMP Reviewed: Not Reviewed Attestations 2 Medical Necessity Statement*: Disposition as per the primary Coding Level of Care Code 57442 Diagnoses Other chest pain R07.89 Chest pain type: other chest pain Nonischemic dilated cardiomyopathy I42.0 Essential hypertension I10 Abnormal EKG R94.31 Tobacco use Z72.0
[2024-11-07] MEDS: aspirin 81 mg EC Tablet PO (09:02)
--- NOTE | 2024-11-07 10:14 | PC.CHAP ---
Pastoral Care Encounter/Spiritual Assessment Type of Contact [] Declined sash finisher visit [] Patient/Family/Request visit [] Outpatient visit [] Follow-up visit [] Physician referral [] Code/Alert [x] Routine visit [] Staff referral [] Actively dying [] Patient sleeping [x] Family support [] [] Out of room [] Palliative care [] [] Receiving care in room [] Pre-surgical visit [] Trauma [] Long length of stay [] ICU visit [] Other: Relational/Emotional Strength [x] Patient feels connected with others/family/visitors/staff [] Distress [] Loneliness/isolation [] Abandonment Spirituality of Patient [x] Person of Vicky [] Attends Denominational of their Vicky [x] Believes in Prayer [] Reads Bible or Mormon materials [] There are Spiritual issues to be addressed Mixer Blender Interventions [x] Prayer [x] Active listening [] Non-anxious presence [x] Spiritual/emotional support [] Crisis/trauma care [] Spiritual counseling [] Bereavement support [] Provided bereavement packet [] Provided Bible/devotional materials [] Provided toy/stuffed animal, coloring book to patient or family member [] Provided Communion [] Anointing/[place]assell [] Salvation [x] Completed spiritual assessment [] Other: Impact on Illness or Injury [] Angry [] Fearful [] Anxious [] Often cries [] Exhaustion [] Unable to work [] Unable to attend druze [] Unable to walk/stand [] Unable to read [] Unable to drive [] Unable to eat/drink [] Unable to sleep [] Unable to be with family [] Patient intubated [] Other: Summary Time spent with patient 5 min
--- NOTE | 2024-11-07 12:41 | P.PN_ITS ---
Subjective 2 Subjective: 54-year-old male presented with chest pa in. His troponins were negative. He did have abnormal urine drug screen. Seen with at bedside. Pain better. Vitals/I&O/Wt Last Vital Signs Temp 98.4 F 11/07/24 12:00 Pulse 86 11/07/24 12:00 Resp 17 11/07/24 12:00 BP 145/112 11/07/24 12:00 Pulse Ox 97 11/07/24 12:00 O2 Del Method Room Air 11/07/24 04:00 11/06/24 11/07/24 11/07/24 22:59 06:59 14:59 Intake Total 0 / 0 200 / 200 Balance 0 / 0 200 / 200 Weight last 48 hrs Weight 194 lb 1.6 oz Weight 195 lb Weight 240 lb Physical Exam 2 Const: COMMON NORMALS: no acute distress and patient oriented x3 HENMT: COMMON NORMALS: normocephalic HEAD & SCALP: normocephalic Neck/C-Spine: COMMON NORMALS: no JVD Chest: COMMONS NORMALS: normal inspection of the chest Cardio: COMMON NORMALS: no JVD, regular rate and regular rhythm RATE: r egular rate RHYTHM: regular rhythm GI: COMMON NORMALS: Soft to palpation INSPECTION: Yes normal to inspection PALPATION: Yes Soft to palpation and No Tenderness to palpation present (GI) Neuro: COMMON NORMALS: patient oriented x3 Data 11/07/24 04:15 11/07/24 04:15 A&P Assessment and plan (1) Cardiomyopathy: (2) Essential hypertension: (3) Unstable angina pectoris: (4) History of CAD (coronary artery disease): (5) Methamphetamine dependence, episodic: (6) Abnormal EKG: Plan 1. appreciate cardiology recs 2. echo, stress test 3. nicotine patch 4. patient counseled about stopping tobacco and drug use 5 continue asa, bb, prn analgesics, nitro DVT: lovenox code full PDMP PDMP Reviewed: Not Reviewed Attestations 2 Medical Necessity Statement*: chest pain, stress test Coding Level of Care Code Acute Code for g Fwd Diagnoses Cardiomyopathy I42.9 Essential hypertension I10 Unstable angina pectoris I20.0 History of CAD (coronary artery disease) Z86.79 Methamphetamine dependence, episodic F15.20 Abnormal EKG R94.31
--- NOTE | 2024-11-07 14:32 | PM.DCS ---
Discharge Providers Date of Admission: 11/06/24 14:59 Date of Discharge: November 07, 2024 Attending Provider at Admission: Elijah Carrington MD Attending Provider at Discharge: Elijah Carrington MD Primary Care Provider: YAYO Reyes Diagnoses at Discharge Discharge Diagnosis (1) Chest pain: Status: Inactive Qualifiers: Chest pain type: other chest pain Qualified Code(s): R07.89 - Other chest pain (2) Nonischemic dilated cardiomyopathy: Status: Acute (3) Essential hypertension: Status: Acute (4) Abnormal EKG: Status: Acute (5) Tobacco use: Status: Chronic Reason for Visit Reason for Visit: chest pain Hospital Course Hospital Course 54-year-old male with history of polysubstance use, tobacco use cardiomyopathy presented with chest pain. He did have some pronounced EKG changes. No troponin elevation. He was given Afrin spray and Zofran and nitro. His blood pressure was also to be abnormal. Reforestation Worker consulted. Medication adjusted. He did have a stress test. He was recommended to continue to stay in the hospital for 1 more day for monitoring. Patient reports that he needed to leave. Medications for discussed patient was discharged in stable and improved condition Physical Exam Const: COMMON NORMALS: no acute distress and patient oriented x3 HENMT: COMMON NORMALS: normocephalic HEAD & SCALP: normocephalic Neck/C-Spine: COMMON NORMALS: no JVD Chest: COMMONS NORMALS: normal inspection of the chest Cardio: COMMON NORMALS: no JVD, regular rate and regular rhythm RATE: regular rate RHYTHM: regular rhythm GI: COMMON NORMALS: Soft to palpation INSPECTION: Yes normal to inspection PALPATION: Yes Soft to palpation and No Tenderness to palpation present (GI) Neuro: COMMON NORMALS: patient oriented x3 Discharge Data Studies Completed and Pending Completed Studies During Hospitalization Category Date Time Status CT angio chest PE protcl [id number] Stat Cat Scan 11/06/24 14:31 Completed Cardiac Stress Test MIBI [Sestamibi Stress Test Request Exams 11/06/24 21:51 Draft ] Routine XR chest 1V portable [id number] Stat Exams 11/06/24 12:56 Completed NM henna perf SPECT r/s* [id number] Routine Nuc Med 11/07/24 21:52 Completed CV. echo complete* [id number] Routine Ultrasound 11/06/24 16:51 Completed Pending at discharge Category Date Time Status Basic Metabolic Panel AM LABS Lab 11/08/24 04:00 Ordered Basic Metabolic Panel AM LABS Lab 11/09/24 04:00 Ordered Complete Blood Count w/Auto AM LABS Lab 11/08/24 04:00 Ordered Complete Blood Count w/Auto AM LABS Lab 11/09/24 04:00 Ordered Magnesium AM LABS Lab 11/08/24 04:00 Ordered Magnesium AM LABS Lab 11/09/24 04:00 Ordered Radiology Impressions Chest X-Ray 11/06/24 12:56 IMPRESSION: Concern for the right hilar region as described above. In view of the history of chest pain and even more more significantly if the patient is a smoker a CT scan of the chest with contrast may be appropriate to rule out ascending aortic abnormality or neoplastic mass would be reasonable. Chest CTA 11/06/24 14:31 IMPRESSION: 1. No evidence of pulmonary embolus. 2. Lungs are well aerated. No acute pulmonary infiltrates. 3. Slight bibasilar atelectasis. 4. No other acute findings. Laboratory Results WBC 8.42 10^3/uL (3.29-11.43) 11/07/24 04:15 RBC 4.66 10^6/uL (3.85-5.65) 11/07/24 04:15 Hgb 14.00 g/dL (11.27-16.99) 11/07/24 04:15 Hct 43.0 % (37-53) 11/07/24 04:15 MCV 92.3 fl (82-101) 11/07/24 04:15 MCH 30.0 pg (27-33) 11/07/24 04:15 MCHC 32.6 g/dL (30-55) 11/07/24 04:15 RDW 11.9 % (12.1-15.1) L 11/07/24 04:15 Plt Count 264 10^3/cmm (157-399) 11/07/24 04:15 MPV 10.9 fL (7.4-10.4) H 11/07/24 04:15 Neut % (Auto) 67.9 % 11/07/24 04:15 Lymph % (Auto) 20.1 % 11/07/24 04:15 [place] % (Auto) 10.1 % 11/07/24 04:15 Eos % (Auto) 1.2 % 11/07/24 04:15 Baso % (Auto) 0.5 % 11/07/24 04:15 Neut # (Auto) 5.72 10^3/uL (1.8-7.7) 11/07/24 04:15 Lymph # (Auto) 1.7 10^3/uL (0.8-4.8) 11/07/24 04:15 [place] # (Auto) 0.9 10^3/uL (0.2-0.9) 11/07/24 04:15 Eos # (Auto) 0.1 10^3/uL (0.0-0.8) 11/07/24 04:15 Baso # (Auto) 0.0 10^3/uL (0.0-0.1) 11/07/24 04:15 Nucleated RBC % (auto) 0 % 11/07/24 04:15 Nucleated RBCs # 0.0 /100WBC 11/07/24 04:15 Sodium 142 mmol/L (136-145) 11/07/24 04:15 Potassium 4.7 mmol/L (3.5-5.1) 11/07/24 04:15 Chloride 103 mmol/L (98-107) 11/07/24 04:15 Carbon Dioxide 28 mmol/L (22-29) 11/07/24 04:15 Anion Gap 15.7 (5-19) 11/07/24 04:15 BUN 22 mg/dL (6-20) H 11/07/24 04:15 Creatinine 1.0 mg/dL (0.7-1.2) 11/07/24 04:15 GFR Calculation 77.6 mL/min (90-130) L 11/07/24 04:15 Glucose 116 mg/dL (65-115) H 11/07/24 04:15 Estimat Average Glucose 111 11/07/24 04:15 Hemoglobin A1c 5.5 % (4.0-6.0) 11/07/24 04:15 Calculated Osmolality 298 mOsm/kg (285-295) H 11/07/24 04:15 Calcium 9.2 mg/dL (8.5-10.5) 11/07/24 04:15 Magnesium 2.0 mg/dL (1.7-2.3) 11/07/24 04:15 Total Bilirubin 0.4 mg/dL (0.15-1.2) 11/06/24 12:30 AST 17 U/L (0-40) 11/06/24 12:30 ALT 17 U/L (0-41) 11/06/24 12:30 Alkaline Phosphatase 92 U/L (40-130) 11/06/24 12:30 Troponin T Baseline 10 ng/L (0-15) 11/06/24 17:34 Troponin T 120 Minute 9.27 ng/L (0-15) 11/06/24 18:48 Delta Troponin T -0.73 ABS# (0-10) L 11/06/24 18:48 Troponin T Hi Sens 6Hr 9.13 ng/L (0-15) 11/06/24 23:32 Troponin T Hi Sens 6Hr Delta -0.87 ng/L (0-12) L 11/06/24 23:32 NT-Pro-B Natriuret Pep 210 pg/mL (0-125) H 11/06/24 12:30 Total Protein 7.4 g/dL (6.6-8.7) 11/06/24 12:30 Albumin 4.4 g/dL (3.5-5.2) 11/06/24 12:30 Globulin 3.0 g/dL (1.3-4.6) 11/06/24 12:30 Triglycerides 140 mg/dL (0-150) 11/07/24 04:15 Cholesterol 146 mg/dL (0-200) 11/07/24 04:15 LDL Cholesterol, Calc 77 mg/dL (50-129) 11/07/24 04:15 HDL Cholesterol 41 mg/dL (60-100) L 11/07/24 04:15 LDL/HDL Ratio 1.88 RATIO (0.00-3.22) 11/07/24 04:15 Cholesterol/HDL Ratio 3.56 mg/dL (1.0-5.00) 11/07/24 04:15 Procalcitonin 0.03 ng/mL (0-0.5) 11/06/24 12:30 Vitals Last Vital Signs Temp 98.4 F 11/07/24 12:00 Pulse 86 11/07/24 12:00 Resp 17 11/07/24 12:00 BP 145/112 11/07/24 12:00 Pulse Ox 97 11/07/24 12:00 O2 Del Method Room Air 11/07/24 04:00 Discharge Plan Discharge Patient Disposition: Home Condition: Stable Prescriptions: New aspirin 81 mg Tablet,Delayed Release (Dr/Ec) 81 mg PO DAILY Qty: 30 0RF metoprolol tartrate 25 mg Tablet 25 mg PO BID@0900,2100 Qty: 60 0RF Continued nitroglycerin [Nitrostat] 0.4 mg tablet, sublingual 0.4 mg sublingual Q5M PRN (Reason: Chest Pain) Rx Instructions: do not exceed 3 doses per episode Discharge Orders: Discharge Order (Routine); Ordered 11/07/24 Ordered By: Elijah Carrington Referrals: Mely Dawson FNP-C [Primary Care Provider, [facility]] - 11/09/24 3:40 am Discharge Diet: Cardiac Discharge Activity: Resume usual activity Patient Instructions: Metoprolol (By mouth) (Lopressor, Toprol XL), Opioid Safety Discharge Attestations Time Spent in Discharge Care*: greater than 30 min Quality Metrics Clinical Quality Measures [ No reported AMI, CVA or VTE this stay] Coding Level of Care Code 00197 Diagnoses Other chest pain R07.89 Chest pain type: other chest pain Nonischemic dilated cardiomyopathy I42.0 Essential hypertension I10 Abnormal EKG R94.31 Tobacco use Z72.0
--- NOTE | 2024-11-07 21:52 | NMCV_ITS ---
NM henna perf SPECT r/s* [id number] Orlin De Age: 54 Gender: M : 1970 Exam Date: 11/07/2024 06:55 Ordering Phys: Autumn Benoit MD ([email or web address]) Technologist: ERIN Ashyb Exam Location: [facility] [address] Indications: CP STRESS TEST Please see separate stress test report in [facility] for full findings IMAGE PROTOCOL Rest/Stress 1 Exercise Day Radiopharmaceutical Dose (mCi) Administration Site Administered by Rest: Tc-99m 10.7 IV Anyi Aguila AWS SOLUTION ARCHITECT Sestamibi Stress:Tc-99m 33 IV Anyi Aguila, AWS SOLUTION ARCHITECT Sestamibi Rest: 07-Nov-2024 60 Discovery 630 Stress: 07-Nov-2024 15 Discovery 630 Radiopharmaceutical was injected at 89 % maximum heart rate. Images obtained in supine and prone position. SPECT RESULTS Technical Quality: Good Raw Data Analysis: Normal Image Corrections: No attenuation or motion correction applied Summed Stress Score: 3 Summed Rest Score: 9 Summed Difference Score: 0 PERFUSION FINDINGS Moderate area of minimally decreased tracer uptake was noted involving the mid inferolateral, mid inferior and apical inferior regions. No significant reversibility was noted in this region FUNCTIONAL RESULTS (calculated via Gated SPECT) Stress Image LV EF (%): 44 Stress EDV (mL):187 TID: 0.85 Stress ESV (mL):104 FUNCTIONAL FINDINGS: Segmental wall motion analysis revealed diffuse hypokinesia of the left ventricle IMPRESSIONS 1. Myocardial perfusion imaging revealing moderate area of minimally decreased persistent tracer uptake involving the inferior, inferolateral regions, suggesting myocardial scarring versus attenuation artifact 2. Diminished LV ejection fraction 44%. 3. LV wall motion analysis revealed diffuse hypokinesia of the left ventricle. 4. Moderately dilated LV cavity with an end-systolic volume of 104 mL The above features may suggest nonischemic cardiomyopathy Low probability for coronary ischemia, based on the above findings Dr Autumn Benoit MD FACC (Electronically Signed) Final Date: 07 Nov 2024 12:52 S
== END 2024-11-07 15:01 | disposition home or self-care (01) | DRG 313 ==
LOC: ER 13:53 → ER IP 15:10 → CSU 16:38 → ER IP 11-07 07:15
PROVIDERS: Admitting Provider Internal Medicine; Emergency Provider Family Medicine; PCP Nurse Practitioner; Visit Provider Internal Medicine
DX: R07.9 Chest pain, unspecified (principal); I42.6 Alcoholic cardiomyopathy; I50.20 Unspecified systolic (congestive) heart failure; I25.110 Atherosclerotic heart disease of native coronary artery with unstable angina pectoris; R94.31 Abnormal electrocardiogram [ECG] [EKG]; I11.0 Hypertensive heart disease with heart failure; F17.210 Nicotine dependence, cigarettes, uncomplicated; R00.0 Tachycardia, unspecified; M19.90 Unspecified osteoarthritis, unspecified site; E78.5 Hyperlipidemia, unspecified; F15.21 Other stimulant dependence, in remission; F10.10 Alcohol abuse, uncomplicated; Z79.82 Long term (current) use of aspirin; Z86.16 Personal history of COVID-19; Z87.01 Personal history of pneumonia (recurrent); Z82.49 Family history of ischemic heart disease and other diseases of the circulatory system
CPT/HCPCS: 36415; 71045; 71275; 78452; 80048; 80053; 80061; 83036; 83735; 83880; 84145; 84484; 85025; 93005; 93017; 93306; 96372; A9500; J1650; J2270; J2405; J3490; J9999

== ENCOUNTER 2025-01-23 14:01 | Emergency (ER) | payer OTHER, MEDICAID, SELFPAY ==
[2025-01-23 14:02] VITALS: BP 143/95; PULSE 103; RESP 16; TEMP 36.6; O2SAT 93; BMI 26.4
--- NOTE | 2025-01-23 14:04 | ECG_ITS ---
[facility]: 2025-01[facility]23 Pat Name: Orlin De Department: Room: Gender: Male Client Support Analyst: : 1970 Requested By: Ginna Espitia Order Number: [id number] Roth MD: Nabil Hernandes M.D. Measurements Intervals [place] Rate: 97 P: 66 IN: 135 QRS: 46 QRSD: 89 T: 220 QT: 333 QTc: 424 Interpretive Statements SINUS RHYTHM POSSIBLE LEFT ATRIAL ENLARGEMENT [-0.1mV P-WAVE IN V1/V2] LEFT VENTRICULAR HYPERTROPHY AND ST-T CHANGE [VOLTAGE CRITERIA PLUS ST/T ABNORMALITY] Compared to ECG 11/07/2024 01:30:24 No significant changes Electronically Signed On 01-25-2025 09:04:56 CDT by Nabil Hernandes M.D. [id number]
--- NOTE | 2025-01-23 14:04 | XRR_ITS ---
PROCEDURE INFORMATION: Exam: XR Chest Exam date and time: 01/23/2025 2:06 PM Age: 54 years old Clinical indication: Pain; Angina pectoris; Additional info: Cp TECHNIQUE: Imaging protocol: Radiologic exam of the chest. Views: 1 view. COMPARISON: CT angio chest PE protcl [id number] 11/06/2024 2:53 PM FINDINGS: Lungs: Unremarkable. No consolidation. Pleural spaces: Unremarkable. No pleural effusion. No pneumothorax. Heart/Mediastinum: Unremarkable. No cardiomegaly. Bones/joints: Unremarkable. XR/XR chest 1V portable [id number] IMPRESSION: No acute findings.
--- OUTSIDE RECORDS SUMMARY | 2025-01-23 14:09 | XMS_ITS | Patient Health Record ---
Author Organization 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 Maximum of 3 doses in 15 minutes Sublingual; Duration: 30 Nitroglycerin (Nitroglycerin) 0.4mg Tablets, Sublingual Dissolve 1 tablet(s) under the tongue may repeat every 5 minutes. 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 Highest Level of Education High School Education (9-12) Completed 12th grade only Marital Status: Problems Problem Type SNOMED Code ICD Code Onset Dates Problem Status W/U Status Risk Notes Problem Carious exposure of pulp (531731911) Dental caries extending into pulp (521.03) 2004 Problem resolved confirmed [id number]- Problem Thoracic back pain (660965104) Upper back pain (724.1) 2006 Problem resolved confirmed [id number]- Problem Multiple joint pain (33089813) Diffuse arthralgia (719.49) 2006 Problem resolved confirmed [id number]- Problem Headache (20224749) Headache (307.81) 2004 Problem resolved confirmed [id number]- Problem Hypercholesterolemia (63547411) Hypercholesterolemia (272.0) 2006 Problem resolved confirmed [id number]- Problem Shoulder pain (46386431) Shoulder pain (719.41) 2007 Problem resolved confirmed [id number]- Problem Sore throat (062419192) Sore Throat (462) 2007 Problem resolved confirmed [id number]- Problem Acute exacerbation o f chronic obstructive airways disease (129720612) Acute exacerbation of chronic obstructive pulmonary disease (COPD) (491.21) 2005 Problem resolved confirmed [id number]- Problem Chest pain (54972996) Chest pain (786.51) 2013 Problem resolved confirmed [id number]- Problem Tobacco user (265349705) Cigarette smoking (305.1) 2008 Problem resolved confirmed [id number]- Problem Generalized abdomina l pain (518560772) Generalized abdominal pain (789.07) 2006 Problem resolved confirmed [id number]- Problem Swelling of limb (13710778) Hand swelling (729.81) 2004 Problem resolved confirmed [id number]- Problem Acquired keratoderma (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) Dry skin syndrome (701.1) 2005 Problem resolved confirmed [id number]- Problem Acute upper respiratory infection (18837332) Acute upper respiratory infection (465.8) 2004 Problem resolved confirmed [id number]- Problem Stress (239341001) Stress (300.02) 2006 Problem resolved confirmed [id number]- Problem Eye pain (88438030) Eye pain (379.91) 2008 Problem resolved confirmed [id number]- Problem Urinary hesitancy (6988179) Urinary hesitancy (788.62) 2006 Problem resolved confirmed [id number]- Problem Ankle pain (148192160) Ankle pain (719.47) 2005 Problem resolved confirmed [id number]- Problem Thoracic back pain (929781837) Upper Back Pain (724.2) 2006 Problem resolved confirmed [id number]- Problem Contact dermatitis (01567180) Dermatitis due to other specified agents, NEC (692.89) 2005 Problem resolved confirmed [id number]- Problem Nausea (442493179) Nausea (787.02) 2005 Problem resolved confirmed [id number]- Plan Of Treatment No Information Medical (General) History Surgical History Surgery Date(Month/Year) NONE
--- NOTE | 2025-01-23 14:19 | ED_ITS ---
HPI - Chest Pain 2 General: Chief Complaint: Chest Pain Stated Complaint: chest pain Time Seen by Provider: 01/23/25 14:03 Source: patient Mode of arrival: ambulatory Limitations: no limitations History of Present Illness: 54-year-old male is here from custodial state s he been having chest pain that started 2 hours ago. States pains been sharp pain in the center of his chest rated 2 out of 10 denies any worse improving factors. Denies any shortness of breath or nausea Associated symptoms: Deny abdominal pain, dyspnea, fever(s), nausea or vomiting Related Data Home Medications ?Medication ?Instructions ?Recorded ?Confirmed nitroglycerin 0.4 mg sublingual 0.4 mg sublingual Q5M PRN Chest 01/30/21 01/23/25 tablet (Nitrostat) Pain Previous Rx's ?Medication ?Instructions ?Recorded aspirin 81 mg tablet,delayed 81 mg PO DAILY #30 tabs 0 11/07/24 release metoprolol tartrate 25 mg tablet 25 mg PO BID@0900,210 0 #60 tabs 11/07/24 Allergies Allergy/AdvReac Type Severity Reaction Status Date / Time No Known Allergies Allergy Verified 09/23/22 12:17 Review of Systems 2 Const: Denies: fever(s), chills, body aches or change in appetite ENMT: Denies: throat pain or dental pain Card: Denies: chest pain Resp: Denies: dyspnea GI: Denies: abdominal pain, nausea, vomiting or diarrhea Musc: Denies: neck pain or back pain Skin/Breast: Denies: rash Neuro: Denies: headache(s) Psych: Reports: paranoia PFS ED 2 PFSH: Medical History (Updated 01/23/25 @ 17:30 by Ginna Espitia MD) Essential hypertension Tobacco use History of ND (myocardial infarction) Migraines Osteoarthritis Hyperlipidemia Pneumonia COVID-19 Cardiomyopathy Nonischemic with last EF around 40% Hypertensive left ventricular hypertrophy with heart failure Surgical History No history of previous surgery Family History Mother CAD (coronary artery disease) Myocardial infarction Social History Smoking and tobacco/nicotine status: current every day tobacco/nicotine user Second hand smoke exposure: No Alcohol intake: never Substance/Drug Use: unknown Adopted: No Caregiver/support person: No Lives independently: Yes Household members: significant other Housing: House Marital status: Number of children: 8 service: No Current occupational status: employed 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 Pets and animals: Yes Pets & animals: cat(s) Do you think of yourself as: Straight/Heterosexual Current gender identity: Male Physical Exam 2 Const: COMMON NORMALS: no acute distress, patient oriented x3 and healthy appearing HENMT: COMMON NORMALS: normocephalic and atraumatic HEAD & SCALP: n ormocephalic and atraumatic Eye: COMMON NORMALS: conjunctivae normal CONJUNCTIVA: Yes conjunctivae normal Neck/C-Spine: COMMON NORMALS: full ROM and supple Chest: COMMONS NORMALS: normal inspection of the chest Resp: COMMON NORMALS: normal respiratory effort, No retractions, No use of accessory muscles and clear to auscultation bilaterally AUSCULTATION: clear to auscultation bilaterally Cardio: COMMON NORMALS: regular rate, regular rhythm and No murmurs present (Cardio) RATE: regular rate RHYTHM: regular rhythm Extremity: COMMON NORMALS: normal to inspection and full ROM Neuro: COMMON NORMALS: patient oriented x3, moves all extremities and no focal motor deficits Psych: COMMON NORMALS: mental status grossly normal, Normal thought process present and cooperative THOUGHT PROCESS: Normal thought process present Skin: COMMON NORMALS: no rashes or lesions noted and no wounds GENERAL SKIN EXAM: no rashes or lesions noted Course 2 Vital Signs: Vital signs: Vital Signs Temperature 97.9 F 01/23/25 14:02 Pulse Rate 105 H 01/23/25 17:40 Respiratory Rate 17 01/23/25 14:56 Blood Pressure 130/81 01/23/25 17:40 Pulse Oximetry 94 01/23/25 17:40 Oxygen Delivery Me thod Room Air 01/23/25 16:00 MDM - Chest Pain Medical Decision Making Patient presents for chest pain is atypical in nature patient's troponins here are normal EKG shows no change he had a recent stress test that was negative he is has no signs of dissection or pulm embolism he is stable for discharge follow-up with PCP return if worsening. Medical Records I reviewed the patient's medical records. Lab Data I reviewed the patient's lab results. 01/23/25 13:45 01/23/25 13:45 Radiology Impressions Chest X-Ray 01/23/25 14:04 IMPRESSION: No acute findings. Laboratory Results WBC 9.77 10^3/uL (3.29-11.43) 01/23/25 13:45 RBC 5.23 10^6/uL (3.85-5.65) 01/23/25 13:45 Hgb 16.20 g/dL (11.27-16.99) 01/23/25 13:45 Hct 46.7 % (37-53) 01/23/25 13:45 MCV 89.3 fl (82-101) 01/23/25 13:45 MCH 31.0 pg (27-33) 01/23/25 13:45 MCHC 34.7 g/dL (30-55) 01/23/25 13:45 RDW 12.0 % (12.1-15.1) L 01/23/25 13:45 Plt Count 327 10^3/cmm (157-399) 01/23/25 13:45 MPV 10.7 fL (7.4-10.4) H 01/23/25 13:45 Neut % (Auto) 66.0 % 01/23/25 13:45 Lymph % (Auto) 23.4 % 01/23/25 13:45 [place] % (Auto) 9.2 % 01/23/25 13:45 Eos % (Auto) 0.9 % 01/23/25 13:45 Baso % (Auto) 0.3 % 01/23/25 13:45 Neut # (Auto) 6.44 10^3/uL (1.8-7.7) 01/23/25 13:45 Lymph # (Auto) 2.3 10^3/uL (0.8-4.8) 01/23/25 13:45 [place] # (Auto) 0.9 10^3/uL (0.2-0.9) 01/23/25 13:45 Eos # (Auto) 0.1 10^3/uL (0.0-0.8) 01/23/25 13:45 Baso # (Auto) 0.0 10^3/uL (0.0-0.1) 01/23/25 13:45 Nucleated RBC % (auto) 0 % 01/23/25 13:45 Nucleated RBCs # 0.0 /100WBC 01/23/25 13:45 Sodium 140 mmol/L (136-145) 01/23/25 13:45 Potassium 4.2 mmol/L (3.5-5.1) 01/23/25 13:45 Chloride 101 mmol/L (98-107) 01/23/25 13:45 Carbon Dioxide 22 mmol/L (22-29) 01/23/25 13:45 Anion Gap 21.2 (5-19) H 01/23/25 13:45 BUN 21 mg/dL (6-20) H 01/23/25 13:45 Creatinine 0.8 mg/dL (0.7-1.2) 01/23/25 13:45 GFR Calculation 100.4 mL/min (90-130) 01/23/25 13:45 Glucose 101 mg/dL (65-115) 01/23/25 13:45 Calculated Osmolality 293 mOsm/kg (285-295) 01/23/25 13:45 Calcium 9.7 mg/dL (8.5-10.5) 01/23/25 13:45 Total Bilirubin 0.3 mg/dL (0.15-1.2) 01/23/25 13:45 AST 14 U/L (0-40) 01/23/25 13:45 ALT 16 U/L (0-41) 01/23/25 13:45 Alkaline Phosphatase 95 U/L (40-130) 01/23/25 13:45 Troponin T Baseline 10 ng/L (0-15) 01/23/25 13:45 Troponin T 120 Minute 9.56 ng/L (0-15) 01/23/25 15:57 Delta Troponin T -0.44 ABS# (0-10) L 01/23/25 15:57 Total Protein 7.9 g/dL (6.6-8.7) 01/23/25 13:45 Albumin 4.4 g/dL (3.5-5.2) 01/23/25 13:45 Globulin 3.5 g/dL (1.3-4.6) 01/23/25 13:45 Lipase 48 U/L (13-60) 01/23/25 13:45 All radiology interpretation(s) finalized by discharge EKG Data EKG 1: I personally reviewed and interpreted this EKG as follows: EKG interpretation date: 01/23/25 EKG interpretation time: 14:04 Interpretation: nsr hr [address] elevation unchanged 11/06/24 qrs 89 qtc 387 Discharge Plan Discharge Patient Disposition: Home Clinical Impression: Chest pain Condition: Stable Prescriptions: No Action nitroglycerin [Nitrostat] 0.4 mg tablet, sublingual 0.4 mg sublingual Q5M PRN (Reason: Chest Pain) Rx Instructions: do not exceed 3 doses per episode aspirin 81 mg Tablet,Delayed Release (Dr/Ec) 81 mg PO DAILY Qty: 30 0RF metoprolol tartrate 25 mg Tablet 25 mg PO BID@0900,2100 Qty: 60 0RF Discharge Orders: Discharge ED (Routine); Ordered 01/23/25 Ordered By: Ginna Espitia Referrals: Mely Dawson, [facility] [Primary Care Provider, [facility]] - 4-7 days Discharge Diet: Advance as tolerated Discharge Activity: Resume usual activity Patient Instructions: Chest Pain (ED) Print Language: Welsh Coding Level of Care Code ED Director Dental Services for Carlos Longo
[2025-01-23 14:23] LABS: Hematocrit 46.7 % (37-53); Hemoglobin 16.20 g/dL (11.27-16.99); Mean Corpuscular HGB Conc 34.7 g/dL (30-55); Mean Corpuscular Hemoglobin 31.0 pg (27-33); Mean Corpuscular Volume 89.3 fl (82-101); Nucleated Red Blood Cells % 0 %; Platelet Count 327 10^3/cmm (157-399); Red Blood Count 5.23 10^6/uL (3.85-5.65); White Blood Count 9.77 10^3/uL (3.29-11.43)
[2025-01-23 14:47] LABS: Troponin(5th) Baseline 10 ng/L (0-15)
[2025-01-23 14:56] VITALS: RESP 17; O2SAT 95
[2025-01-23] MEDS: morphine 4 mg/mL SDV 1 mL IVP (14:56)
[2025-01-23] MEDS: ondansetron 2 mg/ML SDV 2 mL 4 MG IVP (14:57)
[2025-01-23 14:58] LABS: Alanine Aminotransferase 16 U/L (0-41); Albumin Level 4.4 g/dL (3.5-5.2); Alkaline Phosphatase 95 U/L (40-130); Anion Gap 21.2 (5-19); Aspartate Amino Transferase 14 U/L (0-40); Blood Urea Nitrogen 21 mg/dL (6-20); Calcium 9.7 mg/dL (8.5-10.5); Carbon Dioxide 22 mmol/L (22-29); Chloride 101 mmol/L (98-107); Creatinine Clr Calc Pharmacy 117.5438; Globulin 3.5 g/dL (1.3-4.6); Glucose 101 mg/dL (65-115); Lipase 48 U/L (13-60); Osmolality Calculated 293 mOsm/kg (285-295); Potassium 4.2 mmol/L (3.5-5.1); Sodium 140 mmol/L (136-145); Total Protein 7.9 g/dL (6.6-8.7)
[2025-01-23 15:00] VITALS: BP 129/87; PULSE 98; O2SAT 95
--- NOTE | 2025-01-23 15:06 | PC.NURSE ---
1 inch nitro paste that was placed by ems was wiped off by this nurse.
[2025-01-23 15:30] VITALS: BP 115/80; PULSE 88; O2SAT 95
--- NOTE | 2025-01-23 15:54 | ECG_ITS ---
[facility] Test Date: 2025-01-23 Pat Name: Orlin De Department: Room: Gender: Male Notary Public: : 1970 Requested By: Ginna Espitia Order Number: [id number] Reading MD: Measurements Intervals [place] Rate: 77 P: 52 CO: 127 QRS: 30 QRSD: 93 T: 250 QT: 350 QTc: 397 Interpretive Statements SINUS RHYTHM WITH SINUS ARRHYTHMIA POSSIBLE LEFT ATRIAL ENLARGEMENT [-0.1mV P-WAVE IN V1/V2] LEFT VENTRICULAR HYPERTROPHY AND ST-T CHANGE [VOLTAGE CRITERIA PLUS ST/T ABNORMALITY] [email or web address]
[2025-01-23 16:00] VITALS: BP 118/83; PULSE 85; O2SAT 94
--- NOTE | 2025-01-23 16:26 | PC.NURSE ---
PT NOTIFIED THIS NURSE THAT HIS CHEST PAIN WAS BACK. PT RATED PAIN AN 8/10. DR. RUSSO NOTIFIED. NO NEW ORDERS AT THIS TIME.
--- NOTE | 2025-01-23 16:53 | PC.NURSE ---
THIS NURSE WENT TO REASSESS PT PAIN. PT AROUSES TO VERBAL STIMULI BUT REFUSES TO ANSWER.
--- NOTE | 2025-01-23 17:05 | PC.NURSE ---
[facility] STAFF NOTIFIED THIS NURSE THAT PT HAD PINPOINT PUPILS. PROVIDER NOTIFIED. NO NEW ORDERS AT THIS TIME.
[2025-01-23 17:27] LABS: Troponin 5 2HR 9.56 ng/L (0-15)
[2025-01-23 17:28] LABS: Troponin 5 2HR Delta -0.44 ABS# (0-10)
[2025-01-23 17:40] VITALS: BP 130/81; PULSE 105; O2SAT 94
== END 2025-01-23 17:42 | disposition home or self-care (01) ==
PROVIDERS: Emergency Provider Emergency Medicine; PCP Nurse Practitioner
DX: R07.9 Chest pain, unspecified (principal); Z79.82 Long term (current) use of aspirin; Z72.0 Tobacco use; E78.5 Hyperlipidemia, unspecified; I10 Essential (primary) hypertension
CPT/HCPCS: 36415; 71045; 80053; 83690; 84484; 85025; 93005; 96374; 96375; 99285; J1885; J2270; J2405